=== PATIENT | male | born 1945 | race Caucasian/White ===

== ENCOUNTER → 2016-09-23 | Outpatient (CLI) | payer MEDICARE, OTHER ==
[~2016-09-23] MED LIST: ALBU1.25 IH; ALPR0.5T PO; CATHETER FLUSH 10 ML SYR IV PRN; IOHEXOL 350 MG/ML 100 ML (OMNIPAQUE 350) VIAL IV ONE; NS 100 ML (IVPB) BAG IV ONE; RT-ALBUINH IH
[2016-09-23 11:50] LABS: BLOOD UREA NITROGEN 11 MG/DL (7-18); BUN/CREATININE RATIO 13; CREATININE SERUM 0.88 MG/DL (0.60-1.30); GFR ESTIMATED > 60
--- NOTE | 2016-09-23 15:19 | Diagnostic Imaging Report ---
PROCEDURE: CT abdomen and pelvis with contrast. TECHNIQUE: Multiple contiguous axial images were obtained through the abdomen and pelvis after administration of intravenous contrast. INDICATION: Weight loss. 100 mL of Omnipaque 350 is administered intravenously. FINDINGS: There are emphysema changes seen in the lung bases and a 4 cm bulla or pneumatocele in the left lower lobe noted. Minimal atelectasis or scarring is also noted in the left lung base. The liver, the gallbladder, the pancreas and adrenal glands appear unremarkable. The kidneys have symmetric enhancement and excretion. There is no hydronephrosis. There is a 2.4 cm lobulated lesion in the left kidney with question of internal solid component or debris with Hounsfield unit of 20-25 on the arterial phase within it, higher than expected for a simple cyst. The prostate is mildly enlarged and heterogenous measuring 5.5 cm in transverse dimension. There is no bowel obstruction. Small to moderate amounts of fecal material seen in the colon. There is no fluid collection or free fluid in the abdomen or pelvis seen. The abdominal aorta is normal in caliber. No para-aortic significantly enlarged lymph node is seen. There is prominent atherosclerotic plaque noted. The osseous structures demonstrate mild depression of the superior endplate of L2 vertebral body, may relate to degenerative Schmorl's nodes or secondary to injury of indeterminate age. No destructive or sclerotic suspicious mass identified. IMPRESSION: 1. A 2.4 cm left kidney hypodense lesion with slightly higher than simple fluid density in the arterial phase. Evaluation with ultrasound is recommended to ensure that this is a simple or minimally complicated cyst with no solid components. 2. Slightly heterogenous mildly enlarged prostate gland. Correlate clinically and with PSA levels. Dictated by: Dictated on workstation # [id number]
== END ==
LOC: EDSEX 09-10 08:45 → RAD 11:11
DX: R63.4 Abnormal weight loss (principal)
CPT/HCPCS: 36415; 74177; 82565; 84520

== ENCOUNTER → 2016-11-01 | Outpatient (CLI) | payer OTHER ==
[~2016-11-01] MED LIST changes: -CATHETER FLUSH 10 ML SYR IV PRN; -IOHEXOL 350 MG/ML 100 ML (OMNIPAQUE 350) VIAL IV ONE; -NS 100 ML (IVPB) BAG IV ONE
--- NOTE | 2016-11-01 10:28 | Diagnostic Imaging Report ---
EXAMINATION: Renal ultrasound. INDICATION: Weight loss. Indeterminate renal lesion seen on CT in the left kidney. FINDINGS: Along the lateral aspect of the left kidney, there is a 2.6 x 2.6 x 2.5 cm heterogenous complex lesion. There is increased through transmission. There is equivocal color-flow noted along its margins with some probable artifactual color within the lesion. This remains indeterminate. The left kidney is 9.7 and the right kidney is also 9.7 cm in length. No hydronephrosis. The urinary bladder appears unremarkable. IMPRESSION: Indeterminate 2.5 cm heterogenous lesion in the left kidney. There is question of internal color-flow within this lesion or along its margin. This is not definitive, however, based on this exam. A renal mass protocol MRI of the abdomen is recommended to further evaluate. Dictated by: Dictated on workstation # [id number]
== END ==
LOC: RAD 08:57
DX: R93.422 Abnormal radiologic findings on diagnostic imaging of left kidney (principal)
CPT/HCPCS: 76770

== ENCOUNTER 2018-02-24 14:40 | Inpatient (IN) | payer MEDICARE, OTHER ==
[~2018-02-24] VITALS: Ht 177.8 cm; Wt 55.5 kg
[2018-02-24] VITALS (13 sets, daily range): BP systolic 97–139; BP diastolic 55–90
--- OUTSIDE RECORDS SUMMARY | 2018-02-24 14:48 | XMS REPORT ---
Patient Summary 2.1 Created on: NEEL ARAYA : 1945 Sex: Male Author Author ARELIS SHUKLA Unknown Address [address] [facility] [address] [place], [place] [address] Care Team Providers Care Computer Forensics Technician Name Role Phone Watchlist KACEY HERRERA Watchlist SHELLIE Santos MD Attending MIRANDA MAX MD ER Erd[facility]1 [facility] Functional Status No Data Found Immunization Immunization Date Status Additional Notes Code Code System pneumococcal polysaccharide PPV23 04/26/2014 Completed 33 CVX Tdap 04/27/2013 Completed 115 CVX Mental Status No Data Found Results IRON PANEL - Collect Date/Time: 01/07/2018 07:05 [facility] ID: [id number] - [id number] [address] [facility] [address], [place], [address] [facility] ID: [id number] - [id number] [address] [facility] [address], [place], [address] [facility] ID: [id number] - [id number] [address] [facility] [address], [place], [address] [facility] ID: [id number] - [id number] [address] [facility] [address], [place], [address] LOINC: 2500-7 Test Value Unit Reference Range Code Code System IRON TOTAL 66 MCG/DL L=50 H=212 2498-4 LOINC Transferrin 165 MG/DL L=175 H=375 3034-6 LOINC TIBC Calculation 206 MG/DL L=250 H=450 %Saturation Calc 32 % L=15 H=55 COMPREHENSIVE METABOLIC PANEL - Collect Date/Time: 01/07/2018 07:05 [facility] ID: [id number] - [id number] [address], [place], [place], [address] [facility] ID: [id number]..[id number] - [id number] [address], [place], [address] [facility] ID: [id number]..[id number] - [id number] [address], [place], [place], [address] [facility] ID: [id number]..840.1.608887.4.7 - [id number] [address], [place], [place], [address] [facility] ID: 2..840.1.953768.4.7 - [id number] [address], [place], [place], [address] [facility] ID: [id number]..[id number] - [id number] [address], [place], [place], [address] [facility] ID: [id number]..840.1.596785.4.7 - [id number] [address], [place], [place], [address] [facility] ID: 2..840.1.841471.4.7 - [id number] [address], [place], [place], [address] [facility] ID: [id number]..[id number] - [id number] [address], [place], [place], [address] [facility] ID: 2..840.1.341535.4.7 - [id number] [address], [place], [place], [address] [facility] ID: [id number]..840.1.095023.4.7 - [id number] [address], [place], [place], [address] [facility] ID: [id number] - [id number] [address] [facility] [place] [address] [facility] ID: [id number] - [id number] [address] [facility] [address] [place], [place], [address] [facility] ID: [id number] - [id number] [address] [facility] [place], [address] [facility] ID: [id number] - [id number] [address] [facility] [place], [address] [facility] ID: [id number] - [id number] [address] [facility] [address] [place], [address] [facility] ID: [id number] - [id number] [address] [facility] [address] [place], [address] [facility] ID: [id number] - [id number] [address] [facility] [address] [place], [address] [facility] ID: [id number] - [id number] [address] [facility] [address] [place], [address] LOINC: 02534-0 Test Value Unit Reference Range Code Code System GLUCOSE 96 MG/DL L=70 H=100 2345-7 LOINC SODIUM 136 MEQ/L L=135 H=148 2951-2 LOINC POTASSIUM 3.9 MEQ/L L=3.5 H=5.3 2823-3 LOINC CHLORIDE 100 MEQ/L L=96 H=110 2075-0 LOINC CO2 33 MEQ/L L=22 H=29 2028-9 LOINC BUN 15 MG/DL L=8 H=22 3094-0 LOINC CREATININE 0.7 MG/DL L=0.6 H=1.6 2160-0 LOINC SGOT/AST 17 IU/L L=10 H=40 1920-8 LOINC SGPT/ALT 13 IU/L L=8 H=54 1742-6 LOINC ALK PHOS 87 IU/L L=35 H=115 6768-6 LOINC TOTAL PROTEIN 6.0 G/DL L=5.5 H=8.5 2885-2 LOINC ALBUMIN 3.4 G/DL L=3.1 H=5.4 1751-7 LOINC TOTAL BILI 0.3 MG/DL L=0.0 H=1.5 1975-2 LOINC CALCIUM 9.0 MG/DL L=8.2 H=10.6 62650-1 LOINC AGE 72 yrs GFR NonAA 111 GFR AA 135 eGFR 111 mL/min/1.7 eGFR AA* >60 RETIC COUNT - Collect Date/Time: 01/07/2018 07:05 [facility] ID: [id number] - [id number] [address] [place] [address], [place], [place], [address] [facility] ID: [id number] - [id number] [address] [place] [address], [place], [place], [address] [facility] ID: [id number] - [id number] [address] [facility] [address], [place], [address] LOINC: 97358-5 Test Value Unit Reference Range Code Code System RETIC % 1.17 % L=0.50 H=1.80 RETIC # 4.42 10^4/uL L=2.60 H=9.50 IRF 6.6 % L=2.3 H=13.4 FERRITIN - Collect Date/Time: 01/07/2018 07:05 [facility] ID: [id number] - [id number] [address] [facility] [address], [place], [place], [address] LOINC: 2276-4 Test Value Unit Reference Range Code Code System FERRITIN 234 ng/mL L=32 H=322 2276-4 LOINC PHOSPHORUS - Collect Date/Time: 01/07/2018 07:05 [facility] ID: [id number] - [id number] [address], [address] LOINC: 2777-1 Test Value Unit Reference Range Code Code System PHOSPHORUS 1.6 MG/DL L=2.5 H=4.5 2777-1 LOINC MAGNESIUM - Collect Date/Time: 01/07/2018 07:05 [facility] ID: [id number] - [id number] [address], [address] LOINC: 69262-1 Test Value Unit Reference Range Code Code System MAGNESIUM 1.7 MG/DL L=1.7 H=2.8 26431-5 LOINC CBC W/ AUTO DIFF (RFLX MAN DIFF IF IND) - Collect Date/Time: 01/07/2018 07:05 [facility] ID: [id number] - [id number] [address], [address] [facility] ID: [id number] - [id number] [address], [place], [address] [facility] ID: 2.16.840.1.765533.4.7 - [id number] [address], [address] [facility] ID: [id number] - [id number] [address], [address] [facility] ID: [id number] - [id number] [address], [address] [facility] ID: [id number] - [id number] [address], [address] [facility] ID: [id number] - [id number] [address], [place], [address] [facility] ID: [id number] - [id number] [address], [place], [place], [address] [facility] ID: [id number] - [id number] [address], [place], [place], [address] [facility] ID: [id number] - [id number] [address], [place], [place], [address] [facility] ID: [id number] - [id number] [address], [place], [place], [address] [facility] ID: [id number] - [id number] [address], [place], [place], [address] [facility] ID: [id number] - [id number] [address], [place], [address] [facility] ID: [id number] - [id number] [address], [place], [address] [facility] ID: [id number] - [id number] [address], [place], [place], [address] [facility] ID: [id number] - [id number] [address], [place], [address] [facility] ID: [id number] - [id number] [address], [place], [address] [facility] ID: [id number] - [id number] [address] [facility], [place], [address] [facility] ID: [id number] - [id number] [address] [facility] [address], [place], [place], [address] [facility] ID: [id number] - [id number] [address] [facility] [address] [place], [address] [facility] ID: [id number] - [id number] [address] [facility] [address], [place], [address] [facility] ID: [id number] - [id number] [address] [facility] [address] [place], [address] [facility] ID: [id number] - [id number] [address] [facility] [address] [place], [place], [address] [facility] ID: [id number] - [id number] [address] [facility] [address] [place], [address] LOINC: 71678-1 Test Value Unit Reference Range Code Code System WBC 10.8 TH/CMM L=4.5 H=10.8 73219-0 LOINC RBC 3.78 ML/CMM L=4.70 H=6.10 789-8 LOINC HGB 11.4 G/DL L=14.0 H=18.0 718-7 LOINC HCT 36.4 % L=42.0 H=52.0 4544-3 LOINC MCV 96 FL L=81 H=99 MCH 30.2 PG L=27.0 H=33.0 MCHC 31.3 G/DL L=31.0 H=36.0 RDW SD 46 FL L=36 H=50 RDW CV 12.9 % L=0.0 H=14.8 MPV 10.9 FL L=9.3 H=12.5 PLT 109 TH/CMM L=130 H=440 777-3 LOINC NRBC# 0.00 TH/CMM L=0.00 H=0.00 NRBC% 0.0 /100WBC L=0.0 H=2.0 %NEUT 79.4 % %LYMP 11.4 % %MONO 8.7 % %EOS 0.0 % %BASO 0.1 % #NEUT 8.53 TH/CMM L=2.10 H=8.20 #LYMP 1.23 TH/CMM L=0.90 H=5.20 #MONO 0.94 TH/CMM L=0.16 H=1.00 #EOS 0.00 TH/CMM L=0.00 H=0.80 #BASO 0.01 TH/CMM L=0.00 H=0.20 MANUAL DIFF NOT IND VITAMIN B12 & FOLATE - Collect Date/Time: 01/07/2018 07:05 [facility] ID: [id number] - [id number] [address] [facility] [address], [place], [place], [address] [facility] ID: [id number] - [id number] [address] [facility] [address] [place], [address] LOINC: Test Value Unit Reference Range Code Code System VITAMIN B12 281 PG/ML L=213 H=816 2132-9 LOINC FOLATE 3.80 ng/mL 2284-8 LOINC MAGNESIUM - Collect Date/Time: 01/06/2018 06:30 [facility] ID: [id number] - [id number] [address] [facility] [address] [place], [address] LOINC: 05133-9 Test Value Unit Reference Range Code Code System MAGNESIUM 1.8 MG/DL L=1.7 H=2.8 21300-5 LOINC CBC W/ AUTO DIFF (RFLX MAN DIFF IF IND) - Collect Date/Time: 01/06/2018 06:30 [facility] ID: [id number] - [id number] [address] [facility] [address] [place], [address] [facility] ID: [id number] - [id number] [address], [place], [place], [address] [facility] ID: [id number] - [id number] [address], [place], [place], [address] [facility] ID: [id number] - [id number] [address], [place], [place], [address] [facility] ID: [id number] - [id number] [address], [place], [place], [address] [facility] ID: [id number] - [id number] [address], [place], [place], [address] [facility] ID: [id number] - [id number] [address], [place], [address] [facility] ID: [id number] - [id number] [address], [place], [address] [facility] ID: [id number] - [id number] [address], [place], [place], [address] [facility] ID: [id number] - [id number] [address], [place], [address] [facility] ID: [id number] - [id number] [address], [place], [address] [facility] ID: [id number] - [id number] [address], [place], [place], [address] [facility] ID: [id number] - [id number] [address], [place], [address] [facility] ID: [id number] - [id number] [address], [place], [address] [facility] ID: [id number] - [id number] [address], [place], [address] [facility] ID: [id number] - [id number] [address], [place], [address] [facility] ID: [id number] - [id number] [address], [place], [address] [facility] ID: [id number] - [id number] [address], [place], [address] [facility] ID: [id number] - [id number] [address], [place], [address] [facility] ID: [id number] - [id number] [address], [place], [address] [facility] ID: [id number] - [id number] [address], [place], [address] [facility] ID: [id number] - [id number] [address], [place], [address] [facility] ID: [id number] - [id number] [address], [place], [address] [facility] ID: [id number] - [id number] [address], [place], [address] LOINC: 98435-2 Test Value Unit Reference Range Code Code System WBC 8.4 TH/CMM L=4.5 H=10.8 49191-1 LOINC RBC 4.42 ML/CMM L=4.70 H=6.10 789-8 LOINC HGB 13.2 G/DL L=14.0 H=18.0 718-7 LOINC HCT 42.2 % L=42.0 H=52.0 4544-3 LOINC MCV 96 FL L=81 H=99 MCH 29.9 PG L=27.0 H=33.0 MCHC 31.3 G/DL L=31.0 H=36.0 RDW SD 45 FL L=36 H=50 RDW CV 12.6 % L=0.0 H=14.8 MPV 10.6 FL L=9.3 H=12.5 PLT 155 TH/CMM L=130 H=440 777-3 LOINC NRBC# 0.00 TH/CMM L=0.00 H=0.00 NRBC% 0.0 /100WBC L=0.0 H=2.0 %NEUT 83.8 % %LYMP 8.4 % %MONO 7.3 % %EOS 0.0 % %BASO 0.1 % #NEUT 7.00 TH/CMM L=2.10 H=8.20 #LYMP 0.70 TH/CMM L=0.90 H=5.20 #MONO 0.61 TH/CMM L=0.16 H=1.00 #EOS 0.00 TH/CMM L=0.00 H=0.80 #BASO 0.01 TH/CMM L=0.00 H=0.20 MANUAL DIFF NOT IND PHOSPHORUS - Collect Date/Time: 01/06/2018 06:30 [facility] ID: [id number] - [id number] [address], [place], [address] LOINC: 2777-1 Test Value Unit Reference Range Code Code System PHOSPHORUS 3.5 MG/DL L=2.5 H=4.5 2777-1 [facility] METABOLIC PANEL - Collect Date/Time: 01/06/2018 06:30 [facility] ID: [id number] - [id number] [address], [place], [address] [facility] ID: [id number]..[id number] - [id number] [address], [place], [address] [facility] ID: [id number]..840.1.189854.4.7 - [id number] [address], [place], [address] [facility] ID: [id number]..840.1.413813.4.7 - [id number] [address], [place], [address] [facility] ID: [id number]..840.1.676044.4.7 - [id number] [address], [place], [address] [facility] ID: 2..840.1.110418.4.7 - [id number] [address], [place], [address] [facility] ID: [id number]..840.1.849433.4.7 - [id number] [address], [place], [address] [facility] ID: [id number]..840.1.637721.4.7 - [id number] [address], [place], [address] [facility] ID: 2..840.1.854877.4.7 - [id number] [address], [place], [address] [facility] ID: [id number]..840.1.174447.4.7 - [id number] [address], [place], [address] [facility] ID: [id number]..840.1.519424.4.7 - [id number] [address] [facility] [address] [place], [address] [facility] ID: [id number] - [id number] [address] [facility] [address], [place], [place], [address] [facility] ID: [id number] - [id number] [address] [facility] [address], [place], [address] [facility] ID: [id number] - [id number] [address] [facility] [address] [place], [place], [address] [facility] ID: [id number] - [id number] [address] [facility] [address] [place], [place], [address] [facility] ID: [id number] - [id number] [address] [facility] [address], [place], [place], [address] [facility] ID: [id number] - [id number] [address] [facility] 59 [place], [place], [address] [facility] ID: [id number] - [id number] [address] [facility] [address] [place], [place], [address] [facility] ID: [id number] - [id number] [address] [facility] [address] [place], [place], [address] LOINC: 53927-9 Test Value Unit Reference Range Code Code System GLUCOSE 116 MG/DL L=70 H=100 2345-7 LOINC SODIUM 135 MEQ/L L=135 H=148 2951-2 LOINC POTASSIUM 4.6 MEQ/L L=3.5 H=5.3 2823-3 LOINC CHLORIDE 96 MEQ/L L=96 H=110 2075-0 LOINC CO2 33 MEQ/L L=22 H=29 8-9 LOINC BUN 10 MG/DL L=8 H=22 3094-0 LOINC CREATININE 0.8 MG/DL L=0.6 H=1.6 2160-0 LOINC SGOT/AST 19 IU/L L=10 H=40 1920-8 LOINC SGPT/ALT 15 IU/L L=8 H=54 1742-6 LOINC ALK PHOS 99 IU/L L=35 H=115 6768-6 LOINC TOTAL PROTEIN 6.9 G/DL L=5.5 H=8.5 2885-2 LOINC ALBUMIN 3.9 G/DL L=3.1 H=5.4 1751-7 LOINC TOTAL BILI 0.3 MG/DL L=0.0 H=1.5 1975-2 LOINC CALCIUM 9.6 MG/DL L=8.2 H=10.6 37103-9 LOINC AGE 72 yrs GFR NonAA 96 GFR AA 116 eGFR 96 mL/min/1.7 eGFR AA* >60 RESPIRATORY PANEL - Collect Date/Time: 01/05/2018 20:25 [facility] ID: [id number] - [id number] [address] [facility] [address], [place], [place], [address] [facility] ID: [id number] - [id number] [address] [facility], [place], [place], [address] [facility] ID: [id number] - [id number] [address] [facility] [address], [place], [place], [address] [facility] ID: [id number] - [id number] [address] [facility] [address], [place], [address] [facility] ID: [id number] - [id number] [address] [facility] [address], [place], [address] [facility] ID: [id number] - [id number] [address] [facility] [address], [place], [place], [address] [facility] ID: [id number]..840.1.392046.4.7 - [id number] [address], [place], [address] [facility] ID: [id number] - [id number] [address], [place], [place], [address] [facility] ID: [id number] - [id number] [address], [place], [address] [facility] ID: [id number] - [id number] [address], [place], [place], [address] [facility] ID: [id number] - [id number] [address], [place], [place], [address] [facility] ID: [id number] - [id number] [address], [place], [place], [address] [facility] ID: [id number] - [id number] [address], [place], [address] [facility] ID: [id number] - [id number] [address], [place], [place], [address] [facility] ID: [id number] - [id number] [address], [place], [place], [address] [facility] ID: [id number] - [id number] [address], [place], [place], [address] [facility] ID: [id number] - [id number] [address], [place], [place], [address] LOINC: Test Value Unit Reference Range Code Code System Adenovirus Not Detected NEG: Not Detected Coronavirus 229E Not Detected NEG: Not Detected Coronavirus HKU1 Not Detected NEG: Not Detected Coronavirus NL63 Not Detected NEG: Not Detected Coronavirus OC43 Not Detected NEG: Not Detected Human Metapneumoviru Not Detected NEG: Not Detected Human Rhinov/Enterov Not Detected NEG: Not Detected Influenza A Not Detected NEG: Not Detected Influenza B Not Detected NEG: Not Detected Parainfluenza Virus1 Not Detected NEG: Not Detected Parainfluenza Virus2 Not Detected NEG: Not Detected Parainfluenza Virus3 Not Detected NEG: Not Detected Parainfluenza Virus4 Not Detected NEG: Not Detected Resp Syncytial Virus Not Detected NEG: Not Detected Bordetella pertussis Not Detected NEG: Not Detected 18136-8 LOINC Chlamydophila pneumo Not Detected NEG: Not Detected Mycoplasma pneumonia Not Detected NEG: Not Detected ABG - Collect Date/Time: 01/05/2018 16:36 [facility] ID: [id number] - [id number] [address], [address] [facility] ID: [id number] - [id number] [address], [address] [facility] ID: [id number] - [id number] [address], [address] [facility] ID: [id number]..840.1.510673.4.7 - [id number] [address], [address] [facility] ID: [id number]..840.1.337265.4.7 - [id number] [address], [address] [facility] ID: [id number]..840.1.793260.4.7 - [id number] [address] [address], [place], [place], [address] [facility] ID: 2..840.1.332624.4.7 - [id number] [address] [facility] [place], [address] [facility] ID: [id number] - [id number] [address] [facility] [address] [place], [place], [address] [facility] ID: [id number] - [id number] [address] [facility] [address] [place], [place], [id number] LOINC: 83643-3 Test Value Unit Reference Range Code Code System SITE L BRACH FIO2 RA PH 7.33 L=7.35 H=7.45 PCO2 63 mmHG L=35 H=45 PO2 54 mmHG L=80 H=100 BE 4.6 mmol/L L=-2.5 H=2.5 HCO3 32 mmol/L L=22 H=28 TCO2 29 mmol/L L=18 H=31 O2SAT 87 % L=80 H=100 LACTIC ACID - Collect Date/Time: 01/05/2018 11:35 [facility] ID: [id number] - [id number] [address] [facility] [address] [place], [place], [address] LOINC: Test Value Unit Reference Range Code Code System LACTIC ACID 1.3 mmol/L L=0.5 H=1.6 2524-7 LOINC CBC W/ AUTO DIFF (RFLX MAN DIFF IF IND) - Collect Date/Time: 01/05/2018 11:35 [facility] ID: [id number] - [id number] [address] [facility] [address] [place], [address] [facility] ID: [id number] - [id number] [address] [facility] [place], [address] [facility] ID: [id number] - [id number] [address] [facility] [address] [place], [place], [address] [facility] ID: [id number] - [id number] [address], [place], [address] [facility] ID: [id number] - [id number] [address], [place], [place], [address] [facility] ID: [id number] - [id number] [address], [place], [place], [address] [facility] ID: [id number] - [id number] [address], [place], [place], [address] [facility] ID: [id number] - [id number] [address], [place], [place], [address] [facility] ID: [id number] - [id number] [address], [place], [address] [facility] ID: [id number] - [id number] [address], [place], [place], [address] [facility] ID: [id number] - [id number] [address], [place], [place], [address] [facility] ID: [id number] - [id number] [address], [place], [address] [facility] ID: [id number] - [id number] [address], [place], [address] [facility] ID: [id number] - [id number] [address], [place], [place], [address] [facility] ID: [id number] - [id number] [address], [address] [facility] ID: [id number] - [id number] [address], [address] [facility] ID: [id number] - [id number] [address] [facility] [address], [address] [facility] ID: [id number] - [id number] [address] [facility] [address] [place], [place], [address] [facility] ID: [id number] - [id number] [address] [facility] [address] [place], [place], [address] [facility] ID: [id number] - [id number] [address] [facility] [address], [address] [facility] ID: [id number] - [id number] [address] [facility] [address] [place], [place], [address] [facility] ID: [id number] - [id number] [address] [facility] [address] [place], [place], [address] [facility] ID: [id number] - [id number] [address] [facility] [address] [place], [place], [address] [facility] ID: [id number] - [id number] [address] [facility] [address], [address] LOINC: Test Value Unit Reference Range Code Code System WBC 6.1 TH/CMM L=4.5 H=10.8 43712-2 LOINC RBC 4.75 ML/CMM L=4.70 H=6.10 789-8 LOINC HGB 14.4 G/DL L=14.0 H=18.0 718-7 LOINC HCT 45.3 % L=42.0 H=52.0 4544-3 LOINC MCV 95 FL L=81 H=99 MCH 30.3 PG L=27.0 H=33.0 MCHC 31.8 G/DL L=31.0 H=36.0 RDW SD 45 FL L=36 H=50 RDW CV 12.8 % L=0.0 H=14.8 MPV 10.5 FL L=9.3 H=12.5 PLT 146 TH/CMM L=130 H=440 777-3 LOINC NRBC# 0.00 TH/CMM L=0.00 H=0.00 NRBC% 0.0 /100WBC L=0.0 H=2.0 %NEUT 62.6 % %LYMP 22.7 % %MONO 10.9 % %EOS 2.8 % %BASO 0.8 % #NEUT 3.81 TH/CMM L=2.10 H=8.20 #LYMP 1.38 TH/CMM L=0.90 H=5.20 #MONO 0.66 TH/CMM L=0.16 H=1.00 #EOS 0.17 TH/CMM L=0.00 H=0.80 #BASO 0.05 TH/CMM L=0.00 H=0.20 MANUAL DIFF NOT IND COMPREHENSIVE METABOLIC PANEL - Collect Date/Time: 01/05/2018 11:35 [facility] ID: [id number] - [id number] [address] [facility] [address], [place], [place], [address] [facility] ID: [id number] - [id number] [address] [facility] [address], [place], [place], [address] [facility] ID: [id number] - [id number] [address] [facility] [address], [place], [place], [address] [facility] ID: [id number] - [id number] [address] [facility] [address], [place], [place], [address] [facility] ID: [id number] - [id number] [address], [place], [address] [facility] ID: [id number] - [id number] [address], [place], [place], [address] [facility] ID: [id number] - [id number] [address], [place], [place], [address] [facility] ID: [id number] - [id number] [address], [place], [place], [address] [facility] ID: [id number] - [id number] [address], [place], [place], [address] [facility] ID: [id number] - [id number] [address], [place], [place], [address] [facility] ID: [id number] - [id number] [address], [place], [place], [address] [facility] ID: [id number] - [id number] [address], [place], [address] [facility] ID: [id number] - [id number] [address], [place], [address] [facility] ID: .[id number] - [id number] [address], [place], [address] [facility] ID: [id number] - [id number] [address], [place], [id number] [facility] ID: [id number] [address] [facility] [address] [place], [place], [id number] [facility] ID: [id number] [address] [facility] [address] [address] [place], [id number] [facility] ID: [id number] [address] [facility] [address] [place], [id number] [facility] ID: [id number] [address] [facility] [address] [place], [place], [id number] LOINC: Test Value Unit Reference Range Code Code System GLUCOSE 77 MG/DL L=70 H=100 2345-7 LOINC SODIUM 137 MEQ/L L=135 H=148 2951-2 LOINC POTASSIUM 4.5 MEQ/L L=3.5 H=5.3 2823-3 LOINC CHLORIDE 97 MEQ/L L=96 H=110 2075-0 LOINC CO2 33 MEQ/L L=22 H=29 2028-9 LOINC BUN 11 MG/DL L=8 H=22 3094-0 LOINC CREATININE 0.8 MG/DL L=0.6 H=1.6 2160-0 LOINC SGOT/AST 25 IU/L L=10 H=40 1920-8 LOINC SGPT/ALT 17 IU/L L=8 H=54 1742-6 LOINC ALK PHOS 112 IU/L L=35 H=115 6768-6 LOINC TOTAL PROTEIN 7.6 G/DL L=5.5 H=8.5 2885-2 LOINC ALBUMIN 4.2 G/DL L=3.1 H=5.4 1751-7 LOINC TOTAL BILI 0.4 MG/DL L=0.0 H=1.5 1975-2 LOINC CALCIUM 9.8 MG/DL L=8.2 H=10.6 51944-5 LOINC AGE 72 yrs GFR NonAA 96 GFR AA 116 eGFR 96 mL/min/1.7 eGFR AA* >60 CX CHEST 1 VIEW - Completed: 01/06/2018 06:36 LOINC: EXAMINATION:CX CHEST 1 VIEWREASON FOR EXAM:Chronic obstructive pulmonary disease COMPARISON:01/05/2018FINDINGS:The cardiac silhouette is normal in size.Calcified aortic atherosclerotic plaque.The lungs are hyperinflated with chronic appearing interstitial changes.Findings suspicious for a 1.5 cm medial right upper lobe pulmonary nodule, a follow-up nonurgent CT of the chest is suggested for additional evaluation.No consolidation or pleural effusion.Probable right hemithorax skinfold. Chronic bilateral rib fracture deformities. Mildly displaced left lateral clavicular fracture. IMPRESSION: Stable cardiopulmonary findings.Additional findings as above. Reviewed and Electronically Signed by: Angelique Spain Date/Time: 01/06/2018 8:15 AMJob ID#: [id number] CX CHEST 1 VIEW - Completed: 01/05/2018 12:18 LOINC: EXAMINATION:CX CHEST 1 VIEWREASON FOR EXAM:Shortness of Breath COMPARISON: None.FINDINGS:The cardiac silhouette is normal in size.Calcified aortic atherosclerotic plaque.Chronic appearing interstitial changes of the lungs.Findings suspicious for a medial right upper lobe pulmonary nodule, the differential includes summation artifact.No consolidation, pleural effusion, or sizable pneumothorax.IMPRESSION:Chronic appearing findings.Findings suspicious for a medial right upper lobe pulmonary nodule, a follow-up nonurgent outpatient contrast enhanced CT of the chest is suggested.The information above was relayed directly by me by telephone to Johanny in ER on 01/05/2018 at 13:11. Reviewed and Electronically Signed by: Angelique Spain Date/Time: 2017 1:13 PMJob ID#: [id number] Social History Type Status Start Date End Date Code Code System Smoking History Current every day smoker 273052448 SNOMED-CT Vital Signs Vital Sign Value Unit Date/Time Recent/Initial? Code Code System Body Mass Index 17.28 kg/m2 01/07/2018 02:46 Most Recent 18232-7 LOINC Body Mass Index 16.80 kg/m2 01/05/2018 15:58 Inital 84695-4 LOINC Systolic Blood Pressure 106 mm[Hg] 01/07/2018 11:42 Most Recent 8480-6 [facility] Diastolic Blood Pressure 65 mm[Hg] 01/07/2018 11:42 Most Recent 8462-4 [facility] Systolic Blood Pressure 102 mm[Hg] 01/05/2018 15:58 [facility] 8480-6 [facility] Diastolic Blood Pressure 54 mm[Hg] 01/05/2018 15:58 [facility] 8462-4 [facility] Body Surface Area 1.64 m2 01/07/2018 02:46 Most Recent 3140-1 [facility] Body Surface Area 1.62 m2 01/05/2018 15:58 [facility] [address] [facility] Height 177.8000 cm 01/07/2018 02:46 Most Recent 83022 [facility] Height 177.8000 cm 01/05/2018 15:58 [facility] [address] [facility] O2 Saturation 98 % 01/07/2018 11:42 Most Recent 97096-9 [facility] O2 Saturation 97 % 01/05/2018 15:58 Inital 58243-9 [facility] Pulse 63.0 /min 01/07/2018 11:42 Most Recent [address] Pulse 75.0 /min 01/05/2018 15:58 [facility] [address] Respiration 20 /min 01/07/2018 11:42 Most Recent [address] Respiration 19 /min 01/05/2018 15:58 [facility] [address] Temperature 36.7 Dana 01/07/2018 11:42 Most Recent [address] Temperature 36.7 Dana 01/05/2018 15:58 [facility] [address] [facility] Weight 54.6125 kg 01/07/2018 02:46 Most Recent 51257-7 [facility] Weight 53.1157 kg 01/05/2018 15:58 [facility] 76689-0 [facility] Medications Medication Start Date End Date Route Frequency Dose Code Code System DUONEB [ATROVENT/ALBUTEROL] 0.5/3 MG 01/05/2018 Unknown INHALATION Q4HR (RT) 1 unit(s) 0295042 RxNorm PredniSONE 20 MG TABLET 01/05/2018 Unknown BY MOUTH DAILY 60 MG [id number] RxNorm DOXYCYCLINE [VIBRAMYCIN] CAPSULE:100MG 01/05/2018 01/12/2018 BY MOUTH BID 100 MG [id number] RxNorm NICOTINE (NICODERM) PATCH: 21MG/24HR 01/05/2018 Unknown TOPICAL DAILY 21 MG [id number] RxNorm POLYETHYLENE [MIRALAX] POWDER: 17 GM 01/05/2018 Unknown BY MOUTH PRN Q12 HRS 17 GM [id number] RxNorm ONDANSETRON ODT [ZOFRAN ODT] TABLET: 4MG 01/05/2018 Unknown BY MOUTH PRN 4 MG [id number] RxNorm ACETAMINOPHEN [TYLENOL] TABS 325MG 01/05/2018 Unknown BY MOUTH PRN Q 4 HRS 650 MG [id number] RxNorm TAMSULOSIN [FLOMAX] CAP: 0.4MG 01/05/2018 Unknown BY MOUTH HS 0.4 MG [id number] RxNorm BUDESONIDE [PULMICORT] RESP 0.5MG/2ML 01/05/2018 Unknown INHALATION Q 12 HRS (RT ONLY) 1 DOSE 550495 RxNorm NS 1000 ML IV [PREDEFINED] (7983) 01/05/2018 Unknown INTRAVENOUS CONT IV 50 ml/hr [id number] RxNorm ~~~NACL 0.9% (7983) 1000ML IV BAG 1000 ML RxNorm ALPRAZOLAM [XANAX] TABLET : 1 MG 01/05/2018 Unknown BY MOUTH PRN Q 8 HRS 1 MG [id number] RxNorm Assessment You had the following problems: COPD ACUTE RESPIRATORY ACIDOSIS Hospital Discharge Instructions Should you have any questions prior to discharge, please contact a member of your healthcare team. If you have left the hospital and have any questions, please contact your primary care physician. Reason For Referral No Data Found Procedures Procedure Name Date Status Code Code System Extraction of teeth completed 41396476 SNOMED CT Implants No Data Found Problems Problem Start Date Resolved Date Status Code Code System COPD active 58574613 SNOMED-CT ACUTE RESPIRATORY ACIDOSIS active 58712813 SNOMED-CT DEPRESSION 01/05/2018 resolved 14844222 SNOMED-CT ANXIETY 01/05/2018 resolved 50457276 SNOMED-CT COPD 01/05/2018 resolved 66158969 SNOMED- CT SKIN CANCER 01/05/2018 resolved 331364806 SNOMED-CT MRSA INFECTION 01/05/2018 resolved 100377516 SNOMED-CT CHRONIC PTSD 01/05/2018 resolved 552177141 SNOMED-CT CYST OF KIDNEY 01/05/2018 resolved 490036501 SNOMED-CT Allergies Allergy Substance Reaction Severity Start Date Concern Status Code Code System LIDOCAINE Active 6387 RxNorm Plan of Treatment CBC W/ AUTO DIFF (RFLX MAN DIFF IF IND) 01/08/2018 LOINC: 18104- 6 COMPREHENSIVE METABOLIC PANEL 01/08/2018 LOINC: 81803-9 MAGNESIUM 01/08/2018 LOINC: 98334-1 OCCULT BLOOD iFOBT 01/06/2018 LOINC: 2335-8 PHOSPHORUS 01/08/2018 LOINC: 2777-1 Encounters No Data Found Goals No Data Found Health Concerns Section No Data Found
--- OUTSIDE RECORDS SUMMARY | 2018-02-24 14:48 | XMS REPORT ---
Author Author MATT LEWIS [employer] Address Unknown Phone Unavailable Care Team Providers Care Web Art Director Name Role Phone MATT LEWIS CP Unavailable Allergies No Known Allergies Problems Problem Type Condition Code Onset Dates Condition Status Assessment Weight loss, unintentional R63.4 Active Problem Dyslipidemia E78.5 Active Problem Marijuana use F12.10 Active Problem Tobacco use disorder Z72.0 Active Problem Chronic obstructive pulmonary disease, unspecified COPD type J44.9 Active Problem Episodic mood disorder F39 Active Problem Primary osteoarthritis of left knee M17.12 Active Problem Primary osteoarthritis of right knee M17.11 Active Problem Generalized osteoarthritis M15.9 Active Problem Arthritis of right acromioclavicular joint M19.90 Active Medications No Known Medications Results No Known Results Summary Purpose [employer] Submission
--- OUTSIDE RECORDS SUMMARY | 2018-02-24 14:49 | XMS REPORT | Continuity of Care Document ---
Author Author [facility] Organization [facility] Address Unknown Phone Unavailable Allergies Active Description Code Type Severity Reaction Onset Reported/Identified Relationship to Patient Clinical Status Yes LIDOCAINE 20388082 DRUG N/A N/A Yes No Known Environmental Allergies 31549209 N/A N/A Yes No Known Food Allergies 63861112 N/A N/A Yes lidocaine [id number] Drug Allergy Severe N/A 04/16/2016 Yes procaine [id number] Drug Allergy Severe N/A 04/16/2016 Medications There is no data. Problems Date Dx Coded Attending Type Code Diagnosis Diagnosed By 01/22/2008 477.9 Allergic Rhinitis 01/22/2008 780.52 Insomnia 01/22/2008 V58.69 MEDICATION HIGH RISK 01/22/2008 NIKOLE SALMON DO 477.9 Allergic Rhinitis 01/22/2008 NIKOLE SALMON DO 780.52 Insomnia 01/22/2008 NIKOLE SALMON DO V58.69 MEDICATION HIGH RISK 01/22/2008 477.9 Allergic Rhinitis 01/22/2008 780.52 Insomnia 01/22/2008 V58.69 MEDICATION HIGH RISK 01/22/2008 477.9 Allergic Rhinitis 01/22/2008 780.52 Insomnia 01/22/2008 V58.69 MEDICATION HIGH RISK 07/14/2008 300.00 anxiety 07/14/2008 NIKOLE SALMON DO 300.00 anxiety 07/14/2008 300.00 anxiety 07/14/2008 300.00 anxiety 03/30/2009 307.40 Insomnia 03/30/2009 780.79 Malaise And Fatigue 03/30/2009 786.05 Shortness Of Breath 03/30/2009 786.2 Cough 03/30/2009 NIKOLE SALMON DO 307.40 Insomnia 03/30/2009 NIKOLE SALMON DO 780.79 Malaise And Fatigue 03/30/2009 NIKOLE SALMON DO 786.05 Shortness Of Breath 03/30/2009 NIKOLE SALMON DO 786.2 Cough 03/30/2009 307.40 Insomnia 03/30/2009 780.79 Malaise And Fatigue 03/30/2009 786.05 Shortness Of Breath 03/30/2009 786.2 Cough 03/30/2009 307.40 Insomnia 03/30/2009 780.79 Malaise And Fatigue 03/30/2009 786.05 Shortness Of Breath 03/30/2009 786.2 Cough 03/02/2010 465.9 UPPER RESPIRATORY INFECTION 03/02/2010 466.0 Bronchitis, Acute 03/02/2010 786.07 Wheezing 03/02/2010 NIKOLE SALMON DO 465.9 UPPER RESPIRATORY INFECTION 03/02/2010 NIKOLE SALMON DO 466.0 Bronchitis, Acute 03/02/2010 NIKOLE SALMON DO 786.07 Wheezing 03/02/2010 465.9 UPPER RESPIRATORY INFECTION 03/02/2010 466.0 Bronchitis, Acute 03/02/2010 786.07 Wheezing 03/02/2010 465.9 UPPER RESPIRATORY INFECTION 03/02/2010 466.0 Bronchitis, Acute 03/02/2010 786.07 Wheezing 03/30/2010 790.4 Nonspecific Elevation Of Levels Of Transaminase Or Lactic Acid Dehydrogenase (ldh) 03/30/2010 NIKOLE SALMON DO 790.4 Nonspecific Elevation Of Levels Of Transaminase Or Lactic Acid Dehydrogenase ( ldh) 03/30/2010 790.4 Nonspecific Elevation Of Levels Of Transaminase Or Lactic Acid Dehydrogenase (ldh) 03/30/2010 790.4 Nonspecific Elevation Of Levels Of Transaminase Or Lactic Acid Dehydrogenase (ldh) 06/15/2010 709.9 Skin Lesions 06/15/2010 NIKOLE SALMON DO 709.9 Skin Lesions 06/15/2010 709.9 Skin Lesions 06/15/2010 709.9 Skin Lesions 08/24/2010 333.1 Tremor Essential 08/24/2010 NIKOLE SALMON DO 333.1 Tremor Essential 08/24/2010 333.1 Tremor Essential 08/24/2010 333.1 Tremor Essential 11/23/2010 V68.1 ISSUE OF REPEAT PRESCRIPTIONS 11/23/2010 NIKOLE SALMON DO V68.1 ISSUE OF REPEAT PRESCRIPTIONS 11/23/2010 V68.1 ISSUE OF REPEAT PRESCRIPTIONS 11/23/2010 V68.1 ISSUE OF REPEAT PRESCRIPTIONS 01/17/2011 931 Foreign Body In Ear 01/17/2011 NIKOLE SALMON DO 931 Foreign Body In Ear 01/17/2011 931 Foreign Body In Ear 01/17/2011 931 Foreign Body In Ear 02/05/2011 780.50 SLEEP DISTURBANCE, UNSPECIFIED 02/05/2011 881.00 OPEN WOUND OF FOREARM WITHOUT COMPLICATION 02/05/2011 NIKOLE SALMON DO 780.50 SLEEP DISTURBANCE, UNSPECIFIED 02/05/2011 NIKOLE SALMON DO 881.00 OPEN WOUND OF FOREARM WITHOUT COMPLICATION 02/05/2011 780.50 SLEEP DISTURBANCE, UNSPECIFIED 02/05/2011 881.00 OPEN WOUND OF FOREARM WITHOUT COMPLICATION 02/05/2011 780.50 SLEEP DISTURBANCE, UNSPECIFIED 02/05/2011 881.00 OPEN WOUND OF FOREARM WITHOUT COMPLICATION 02/08/2011 041.12 METHICILLIN RESISTANT STAPHYLOCOCCUS INFECTION IN CONDITIONS CLASSIFIED ELSEWHERE AND OF UNSPECIFIED SITE STAPHYLOCOCCUS AUREUS 02/08/2011 NIKOLE SALMON DO 041.12 METHICILLIN RESISTANT STAPHYLOCOCCUS INFECTION IN CONDITIONS CLASSIFIED ELSEWHERE AND OF UNSPECIFIED SITE STAPHYLOCOCCUS AUREUS 02/08/2011 041.12 METHICILLIN RESISTANT STAPHYLOCOCCUS INFECTION IN CONDITIONS CLASSIFIED ELSEWHERE AND OF UNSPECIFIED SITE STAPHYLOCOCCUS AUREUS 02/08/2011 041.12 METHICILLIN RESISTANT STAPHYLOCOCCUS INFECTION IN CONDITIONS CLASSIFIED ELSEWHERE AND OF UNSPECIFIED SITE STAPHYLOCOCCUS AUREUS 08/13/2011 296.90 MOOD DISORDER 08/13/2011 780.79 MALAISE AND FATIGUE 08/13/2011 783.0 ANOREXIA 08/13/2011 NIKOLE SALMON DO 296.90 MOOD DISORDER 08/13/2011 NIKOLE SALMON DO 780.79 MALAISE AND FATIGUE 08/13/2011 NIKOLE SALMON DO 783.0 ANOREXIA 08/13/2011 296.90 MOOD DISORDER 08/13/2011 780.79 MALAISE AND FATIGUE 08/13/2011 783.0 ANOREXIA 08/13/2011 296.90 MOOD DISORDER 08/13/2011 780.79 MALAISE AND FATIGUE 08/13/2011 783.0 ANOREXIA 08/03/2012 NIKOLE SALMON DO 307.47 NIGHTMARE DISORDER 08/03/2012 NIKOLE SALMON DO 466.0 ACUTE BRONCHITIS 08/03/2012 NIKOLE SALMON DO 496 CHRONIC OBSTRUCTIVE PULMONARY DISEASE 08/03/2012 NIKOLE SALMON DO 715.00 OSTEOARTHRITIS GENERALIZED 08/03/2012 NIKOLE SALMON DO 719.46 joint pain in the left knee 08/03/2012 307.47 NIGHTMARE DISORDER 08/03/2012 466.0 ACUTE BRONCHITIS 08/03/2012 496 CHRONIC OBSTRUCTIVE PULMONARY DISEASE 08/03/2012 715.00 OSTEOARTHRITIS GENERALIZED 08/03/2012 719.46 joint pain in the left knee 08/03/2012 307.47 NIGHTMARE DISORDER 08/03/2012 466.0 ACUTE BRONCHITIS 08/03/2012 496 CHRONIC OBSTRUCTIVE PULMONARY DISEASE 08/03/2012 715.00 OSTEOARTHRITIS GENERALIZED 08/03/2012 719.46 joint pain in the left knee 10/20/2012 786.09 DYSPNEA 10/20/2012 922.1 CONTUSION OF CHEST WALL 10/20/2012 786.09 DYSPNEA 10/20/2012 922.1 CONTUSION OF CHEST WALL 11/27/2012 305.1 TOBACCO ABUSE 12/31/2012 V65.42 COUNSELING - SMOKING CESSATION 09/08/2013 MARJAN SANDOVAL, LIZANDRO Santos Ot 401.9 HYPERTENSION NOS 04/16/2016 PAM BARAHONA MD Ot R63.4 ABNORMAL WEIGHT LOSS 04/16/2016 PAM BARAHONA MD Ot Z01.818 ENCOUNTER FOR OTHER PREPROCEDURAL EXAMIN 04/16/2016 PAM BARAHONA MD Ot Z12.11 ENCOUNTER FOR SCREENING FOR MALIGNANT NE 04/16/2016 PAM BARAHONA MD Ot R63.4 ABNORMAL WEIGHT LOSS 04/16/2016 PAM BARAHONA MD Ot Z01.818 ENCOUNTER FOR OTHER PREPROCEDURAL EXAMIN 04/16/2016 PAM BARAHONA MD Ot Z12.11 ENCOUNTER FOR SCREENING FOR MALIGNANT NE 04/17/2016 PAM BARAHONA MD Ot K64.1 SECOND DEGREE HEMORRHOIDS 04/17/2016 PAM BARAHONA MD Ot Z12.11 ENCOUNTER FOR SCREENING FOR MALIGNANT NE 04/18/2016 PAM BARAHONA MD Ot K64.1 SECOND DEGREE HEMORRHOIDS 04/18/2016 PAM BARAHONA MD Ot Z12.11 ENCOUNTER FOR SCREENING FOR MALIGNANT NE 04/23/2016 PAM BARAHONA MD Ot K64.1 SECOND DEGREE HEMORRHOIDS 04/23/2016 PAM BARAHONA MD Ot Z12.11 ENCOUNTER FOR SCREENING FOR MALIGNANT NE 04/30/2016 PAM BARAHONA MD Ot K64.1 SECOND DEGREE HEMORRHOIDS 04/30/2016 PAM BARAHONA MD Ot Z12.11 ENCOUNTER FOR SCREENING FOR MALIGNANT NE 11/04/2016 CARLOS ENRIQUE PORTER DO Ot R93.422 ABNORMAL RADIOLOGIC FINDINGS ON DX IMAGI 11/05/2016 CARLOS ENRIQUE PORTER DO Ot R93.422 ABNORMAL RADIOLOGIC FINDINGS ON DX IMAGI 11/05/2016 CARLOS ENRIQUE PORTER DO Ot R93.422 ABNORMAL RADIOLOGIC FINDINGS ON DX IMAGI 11/05/2016 CARLOS ENRIQUE PORTER DO Ot R93.422 ABNORMAL RADIOLOGIC FINDINGS ON DX IMAGI Procedures Code [place] [address] XRAY CHEST 2 VIEW 10/20/2012 76769 PULMONARY FUNCTION TEST (IN- HOUSE) 10/20/2012 18374 OXIMETRY 10/20/2012 Results Test Result Range [id number] - 09/23/16 11:29 Serum or plasma urea nitrogen measurement (mass/volume) 11 mg/dL 7-18 Serum or plasma creatinine measurement (mass/volume) 0.88 mg/dL 0.60-1.30 Serum or plasma urea nitrogen/creatinine mass ratio 13 NRG Serum or plasma creatinine measurement with calculation of estimated glomerular filtration rate > NRG Encounters ACCT No. Visit Date/Time Discharge Status Pt. Type Provider Facility Loc./Unit Complaint [id number] 02/09/2018 13:06:02 02/09/2018 23:59:59 CLS Outpatient Jae Nair [id number] 01/21/2018 16:24:11 01/21/2018 23:59:59 CLS Outpatient Contreras Monge [id number] 01/06/2018 08:10:45 Document Registration [id number] 01/05/2018 16:49:36 Document Registration [id number] 11/01/2016 08:57:00 11/01/2016 23:59:59 CLS Outpatient CARLOS ENRIQUE PORTER DO [facility] RAD CYST OF KIDNEY [id number] 09/23/2016 11:11:00 09/23/2016 23:59:59 CLS Outpatient CARLOS ENRIQUE PORTER DO [facility] RAD R63.4 WEIGHT LOSS [id number] 04/17/2016 11:36:00 04/17/2016 13:45:00 DIS Outpatient PAM BARAHONA MD [facility] SCREENING; WEIGHT LOSS [id number] 04/16/2016 08:30:00 04/16/2016 08:40:00 DIS Outpatient BROOKLYN SANDOVAL, PAM [facility] PREOP SCREENING; WEIGHT LOSS [id number] 09/08/2013 16:59:00 09/08/2013 17:15:00 DIS Emergency MARJAN SANDOVAL, LIZANDRO Santos [facility] ER ELEVATED BP [id number] 08/03/2012 13:43:00 08/03/2012 23:59:59 CLS Outpatient NIKOLE SALMON DO [id number] 08/13/2011 09:27:00 08/13/2011 23:59:59 CLS Outpatient [id number] 12/31/2012 08:16:00 Document Registration [id number] 10/20/2012 15:04:00 Document Registration
[2018-02-24] MEDS ORDERED: CATHETER FLUSH 10 ML SYR IV PRN (15:15)
[2018-02-24] MEDS ORDERED: RT-ALBUTEROL/IPRATROPIUM 3 ML (DUONEB) VIAL IH PRN (15:15)
[2018-02-24] MEDS ORDERED: IOHEXOL 350 MG/ML 150 ML (OMNIPAQUE 350) VIAL IV ONE (15:30)
[2018-02-24 15:49] LABS: BASOPHILS # (AUTO) 0.1 10^3/uL (0.0-0.1); BASOPHILS % (AUTO) 1 % (0-10); EOSINOPHILS # (AUTO) 0.1 10^3/uL (0.0-0.3); EOSINOPHILS % (AUTO) 2 % (0-10); HEMATOCRIT 43 % (40-54); HEMOGLOBIN 13.6 G/DL (13.3-17.7); LYMPHOCYTES # (AUTO) 1.2 X 10^3 (1.0-4.0); LYMPHOCYTES % (AUTO) 15 % (12-44); MEAN CORPUSCULAR HEMOGLOBIN 30 PG (25-34); MEAN CORPUSCULAR HGB CONC 32 G/DL (32-36); MEAN CORPUSCULAR VOLUME 96 FL (80-99); MEAN PLATELET VOLUME 10.2 FL (7.4-10.4); MONOCYTES # (AUTO) 0.9 X 10^3 (0.0-1.0); MONOCYTES % (AUTO) 11 % (0-12); NEUTROPHILS # (AUTO) 5.9 X 10^3 (1.8-7.8); NEUTROPHILS % (AUTO) 72 % (42-75); PLATELET COUNT 163 10^3/uL (130-400); RED BLOOD COUNT 4.48 10^6/uL (4.35-5.85); RED CELL DISTRIBUTION WIDTH 14.3 % (10.0-14.5); WHITE BLOOD COUNT 8.2 10^3/uL (4.3-11.0)
[2018-02-24] MEDS ORDERED: ENOXAPARIN 40 MG/0.4 ML (LOVENOX) SYR SC SCH (16:00)
[2018-02-24 16:08] LABS: ALANINE AMINOTRANSFERASE 11 U/L (0-55); ALBUMIN 3.7 GM/DL (3.2-4.5); ALKALINE PHOSPHATASE 114 U/L (40-136); BILIRUBIN,TOTAL 0.3 MG/DL (0.1-1.0); BUN/CREATININE RATIO 23; CALCIUM 9.3 MG/DL (8.5-10.1); CARBON DIOXIDE 34 MMOL/L (21-32); CHLORIDE 98 MMOL/L (98-107); CREATININE SERUM 0.74 MG/DL (0.60-1.30); GFR ESTIMATED > 60; GLUCOSE 94 MG/DL (70-105); MAGNESIUM 1.7 MG/DL (1.8-2.4); PHOSPHORUS 2.6 MG/DL (2.3-4.7); POTASSIUM 4.1 MMOL/L (3.6-5.0); SODIUM 140 MMOL/L (135-145); TOTAL PROTEIN 6.8 GM/DL (6.4-8.2)
[2018-02-24] MEDS ORDERED: NAPR220T66 PO (16:22)
[2018-02-24] MEDS ORDERED: ALPR1TAB7 PO (16:22)
[2018-02-24] MEDS ORDERED: INHALER (16:24)
[2018-02-24] MEDS: PANTOPRAZOLE 40 MG (PROTONIX) VIAL IV SCH (16:47)
[2018-02-24] MEDS: LACTATED RINGERS 1,000 ML IV SCH ×2 (16:47→23:06)
--- NOTE | 2018-02-24 16:51 | Diagnostic Imaging Report ---
PROCEDURE: CT head with and without contrast. TECHNIQUE: Multiple contiguous axial images were obtained through the brain before and after the administration of intravenous contrast. INDICATION: Fall. COMPARISON: None. FINDINGS: No CT evidence of territorial infarction. No intracranial hemorrhage, mass effect, hydrocephalus, or extra-axial fluid collections. Moderate generalized cerebral and cerebellar parenchymal volume loss. No abnormal intracranial enhancement. Osseous structures are intact. The visualized paranasal sinuses and mastoids are unremarkable. IMPRESSION: No acute intracranial CT findings. No abnormal intracranial enhancement. Dictated by: Dictated on workstation # [id number]
--- NOTE | 2018-02-24 17:05 | Diagnostic Imaging Report ---
PROCEDURE: CT angiography of the chest with contrast. TECHNIQUE: Multiple contiguous axial images were obtained through the chest after uneventful bolus administration of intravenous contrast. 2D reconstructed CTA MIP acquisitions were also performed. INDICATION: Fall one week ago. Lung mass. COMPARISON: None. FINDINGS: No pulmonary artery filling defects. No thoracic aortic aneurysm or dissection. Moderate atherosclerotic calcifications including coronary and aortic. Advanced emphysematous changes in the lungs. There is a spiculated mass in the posterior right upper lobe measuring up to 2.9 cm. Prominent mediastinal lymph nodes remain subcentimeter in short axis dimension. No hilar or axillary lymphadenopathy. No endobronchial lesions. No pleural effusion or pneumothorax. The visualized upper abdominal contents, including the adrenal glands are unremarkable. No suspicious osteoblastic or lytic lesions. There is acute appearing posterior left 9th through 11th rib fractures. IMPRESSION: 1. No pulmonary emboli. No thoracic aortic aneurysm or dissection. 2. Mass in the posterior right upper lobe measuring up to 2.9 cm strongly suspicious for a primary lung malignancy. 3. Acute appearing mildly angulated posterior left 9th through 11th rib fractures. Dictated by: Dictated on workstation # [id number]
[2018-02-24] MEDS ORDERED: FLU QUADRIvalent (5+ YOA) 2018-2019 (AFLURIA) 0.5 ML IM ONE (17:30)
[2018-02-24 20:36] LABS: BILIRUBIN,URINE NEGATIVE (NEGATIVE); CLARITY,URINE CLEAR; COLOR,URINE YELLOW; GLUCOSE, URINE (UA) NEGATIVE (NEGATIVE); KETONES,URINE NEGATIVE (NEGATIVE); LEUKOCYTE ESTERASE ,URINE NEGATIVE (NEGATIVE); NITRITE,URINE NEGATIVE (NEGATIVE); PH,URINE 6.5 (5-9); PROTEIN,URINE 2+ (NEGATIVE); UROBILINOGEN,URINE NORMAL (NORMAL)
[2018-02-24 20:46] LABS: SQUAMOUS EPITHELIAL CELL,UR RARE /HPF
[2018-02-25] VITALS (17 sets, daily range): BP systolic 105–139; BP diastolic 51–69
[2018-02-25] MEDS: RT-ALBUTEROL/IPRATROPIUM 3 ML (DUONEB) VIAL IH SCH ×6 (03:12→22:37)
[2018-02-25 03:41] LABS: BASOPHILS # (AUTO) 0.1 10^3/uL (0.0-0.1); BASOPHILS % (AUTO) 1 % (0-10); EOSINOPHILS # (AUTO) 0.2 10^3/uL (0.0-0.3); EOSINOPHILS % (AUTO) 3 % (0-10); HEMATOCRIT 39 % (40-54); HEMOGLOBIN 12.4 G/DL (13.3-17.7); LYMPHOCYTES # (AUTO) 1.6 X 10^3 (1.0-4.0); LYMPHOCYTES % (AUTO) 21 % (12-44); MEAN CORPUSCULAR HEMOGLOBIN 30 PG (25-34); MEAN CORPUSCULAR HGB CONC 32 G/DL (32-36); MEAN CORPUSCULAR VOLUME 95 FL (80-99); MEAN PLATELET VOLUME 10.5 FL (7.4-10.4); MONOCYTES # (AUTO) 0.9 X 10^3 (0.0-1.0); MONOCYTES % (AUTO) 12 % (0-12); NEUTROPHILS # (AUTO) 4.8 X 10^3 (1.8-7.8); NEUTROPHILS % (AUTO) 64 % (42-75); PLATELET COUNT 135 10^3/uL (130-400); RED BLOOD COUNT 4.08 10^6/uL (4.35-5.85); RED CELL DISTRIBUTION WIDTH 14.3 % (10.0-14.5); WHITE BLOOD COUNT 7.5 10^3/uL (4.3-11.0)
[2018-02-25 04:06] LABS: BUN/CREATININE RATIO 20; CALCIUM 8.8 MG/DL (8.5-10.1); CARBON DIOXIDE 30 MMOL/L (21-32); CHLORIDE 100 MMOL/L (98-107); CREATININE SERUM 0.71 MG/DL (0.60-1.30); GFR ESTIMATED > 60; GLUCOSE 86 MG/DL (70-105); MAGNESIUM 1.6 MG/DL (1.8-2.4); PHOSPHORUS 3.1 MG/DL (2.3-4.7); POTASSIUM 4.2 MMOL/L (3.6-5.0); SODIUM 140 MMOL/L (135-145)
[2018-02-25] MEDS: MAGNESIUM 1 GM/100 ML IVPB 100 ML IV SCH ×4 (04:55→08:30)
[2018-02-25] MEDS: LACTATED RINGERS 1,000 ML IV SCH ×3 (04:56→18:17)
[2018-02-25] MEDS ORDERED: KCL 20 MEQ TAB (K-DUR) PO SCH (06:00)
[2018-02-25] MEDS ORDERED: MAGNESIUM 1 GM/100 ML IVPB 100 ML IV SCH (06:00)
[2018-02-25] MEDS ORDERED: methylPREDNISolone 40 MG/ML (Solu-MEDROL) VIAL ONE (06:00)
[2018-02-25] MEDS ORDERED: POTASSIUM CL 10MEQ/50ML IVPB 50 ML IV SCH (06:00)
--- NOTE | 2018-02-25 06:01 | Pulmonary Consultation ---
History of Present Illness History of Present Illness Date of Consultation 02/25/18 05:56 Time Seen by Provider: 05:56 Date of Admission History of Present Illness 72yo patient who was directly admitted from my office yesterday secondary to hypoxia, worsening SOB, CP, dehydrations and s/p fall hitting the back of his head. Pt is a referral from the [place] and i was seeing as a new patient. He has been loosing weight and has been having worsening SOB. No productive cough or hemoptysis. He states he has been using his wifes oxygen secondary to extreme SOB. He is having difficulty sleeping at night secondary to SOB and also waking up SOB. He appears dehydrated and malnutrition. CT of chest shows right spiculated lung mass and rib fractures. Allergies and Home Medications Allergies Coded Allergies: lidocaine (Verified Allergy, Severe, 04/16/16) procaine (Verified Allergy, Severe, 04/16/16) Home Medications Albuterol Sulfate 1 Puff Puff, 2 PUFF IH QID PRN for SHORTNESS OF BREATH, ( Reported) 1 PUFF = 90 MCG Albuterol/Ipratropium 4 Gm Aero, 1 PUFF IH QID, (Reported) Alprazolam 1 Mg Tablet, 1 MG PO TID PRN for ANXIETY, (Reported) Budesonide/Formoterol Fumarate 10.2 Gm Hfa.aer.ad, 2 PUFF IH BID, (Reported) Naproxen Sodium 220 Mg Tablet, 220 MG PO Q8H PRN for PAIN-MILD, (Reported) Past Glivdrw-Hybcii-Lcqgrr Hx Patient Social History Alcohol Use: Occasionally Uses Alcohol Beverage of Choice: Vodka Recreational Drug Use: No Smoking Status: Current Everyday Smoker Type Used: Cigarettes Recent Foreign Travel: No Contact w/Someone Who Travel: No Recent Infectious Disease Expo: No Recent Hopitalizations: No Immunizations Up To Date Tetanus Booster (TDap): Unknown Date of Pneumonia Vaccine: Feb 14, 2015 Date of Influenza Vaccine: Mar 18, 2016 Seasonal Allergies Seasonal Allergies: Yes Past Medical History Surgeries: Yes (SKIN LESIONS REMOVERD) Respiratory: Yes Asthma, COPD Currently Using CPAP: No Currently Using BIPAP: No Cardiac: No Neurological: No Reproductive Disorders: No Sexually Transmitted Disease: No HIV/AIDS: No Genitourinary: No Gastrointestinal: Yes (WEIGHT LOSS) Chronic Constipation Musculoskeletal: No Endocrine: No HEENT: Yes Loss of Vision: Bilateral Hearing Impairment: Hard of Hearing Cancer: Yes Skin Psychosocial: Yes Sleep Difficulties, Anxiety, PTSD Integumentary: No Blood Disorders: No Adverse Reaction/Blood Tranf: No (N/A) Review of Systems Time Seen by Provider: 06:19 Constitutional: Sweats, Weakness, Malaise Eyes: No: Pain, Vision change, Conjunctivae inflammation, Eyelid inflammation, Other, Redness ENT: Nose congestion; No: Ear pain, Ear discharge, Nose pain, Nose discharge, Mouth pain, Mouth swelling, Throat pain, Throat swelling, Other Respiratory: Cough, Dry, Shortness of breath, SOB with excertion, Wheezing, Pleuritic Pain; No: Hemoptysis Cardiovascular: Chest Pain, Palpitations, Paroxysmal Noc. Dyspnea Gastrointestinal: No: Nausea, Vomiting, Abdominal Pain, Diarrhea, Constipation , Melena, Hematochezia, Other Neurological: Weakness, Incoordination, Confusion Sepsis Event Evaluation Height, Weight, BMI Height: 5'10.00" Weight: 118lbs. 0.0oz. 53.318479pc; 17.5 BMI Method: Exam Exam Vital Signs Date Time Temp Pulse Resp B/P (MAP) Pulse Ox O2 Delivery O2 Flow Rate FiO2 02/25/18 05:00 66 22 138/69 (92) 95 Nasal Cannula 2.00 02/25/18 04:00 95 Nasal Cannula 2.00 02/25/18 04:00 61 28 135/69 (91) 96 Nasal Cannula 2.00 02/25/18 03:45 98.2 02/25/18 03:23 70 16 99 Nasal Cannula 2.00 02/25/18 03:13 96 Nasal Cannula 4.00 02/25/18 03:00 66 23 120/59 (79) 97 Nasal Cannula 4.00 02/25/18 02:00 68 20 139/62 (87) 98 Nasal Cannula 4.00 02/25/18 01:00 67 02/25/18 01:00 67 24 123/65 (84) 100 Nasal Cannula 4.00 02/25/18 00:05 98.0 02/25/18 00:00 68 22 118/60 (79) 99 Nasal Cannula 4.00 02/24/18 23:45 95 Nasal Cannula 4.00 02/24/18 23:00 68 12 129/69 (89) 99 Nasal Cannula 4.00 02/24/18 22:04 Nasal Cannula 4.00 02/24/18 22:00 73 20 130/73 (92) 94 Nasal Cannula 4.00 02/24/18 21:59 88 Nasal Cannula 1.00 02/24/18 21:00 71 27 129/66 (87) 92 Nasal Cannula 1.00 02/24/18 20:20 95 Nasal Cannula 1.00 02/24/18 20:00 69 23 130/68 (88) 93 Nasal Cannula 1.00 02/24/18 19:45 97.6 02/24/18 19:00 83 02/24/18 19:00 83 23 128/67 (87) 94 Nasal Cannula 1.00 02/24/18 18:00 84 38 122/90 (101) 95 Nasal Cannula 1.00 02/24/18 17:00 70 19 139/65 (89) 92 Nasal Cannula 1.00 02/24/18 16:00 75 13 127/61 (83) 94 Nasal Cannula 1.00 02/24/18 15:45 76 31 120/64 (82) 93 Nasal Cannula 1.00 02/24/18 15:30 76 26 130/71 (90) 95 Nasal Cannula 1.00 02/24/18 15:15 73 31 122/59 (80) 98 Nasal Cannula 1.00 02/24/18 15:01 86 02/24/18 15:00 75 19 97/55 (69) 85 Nasal Cannula 1.00 02/24/18 14:45 Nasal Cannula 1.00 02/24/18 14:45 97.7 75 24 97/55 (69) 99 Nasal Cannula 1.00 I & O 02/25/18 07:00 Intake Total 2655 ml Output Total 850 ml Balance 1805 ml Height & Weight Height: 5'10.00" Weight: 118lbs. 0.0oz. 53.578065lq; 17.5 BMI Method: General Appearance: Chronically ill, Mild Distress, Thin Respiratory: Decreased Breath Sounds Cardiovascular: Regular Rate, Rhythm, No Edema, No Gallop Capillary Refill: Less Than 3 Seconds Gastrointestinal: normal bowel sounds, non tender, soft Extremity: Normal Capillary Refill Neurologic/Psychiatric: Alert, Oriented x3 Skin: Normal Color, Warm/Dry Lymphatic: No Adenopathy Results Lab Laboratory Tests 02/24/18 15:37 02/25/18 03:10 Assessment/Plan Assessment/Plan COPDAE with hypoxia -Pt will need home 02 -SVNS, steroids -Check ABG Rib fractures left 01-20 Malnutrition/debility and dehydration -PT/OT -IVF Lung Mass with probable cancer -PT needs bronchoscopy with EBUS -Will do tomorrow morning S/p fall hitting back of head -Ct of head is negative PATY JOHNSON DO Feb 25, 2018 06:01
[2018-02-25] MEDS: methylPREDNISolone 40 MG/ML (Solu-MEDROL) VIAL IV SCH ×4 (06:05→23:47)
[2018-02-25 07:40] LABS: ABG BASE EXCESS 11.6 MMOL/L (-2.5-2.5); ABG OXYGEN SATURATION 94 % (94-100); ABG PCO2 65 MMHG (35-45); ABG PH 7.38 (7.37-7.43); ABG PO2 73 MMHG (79-93); ABG TCO2 39.4 MMOL/L (21.0-31.0); ALLENS TEST POSITIVE; INSPIRED O2 1 L; PATIENT TEMP 97.1; VENTILATOR NO
[2018-02-25] MEDS ORDERED: LORazepam INJ 2 MG/ML (ATIVAN) VIAL IVP PRN (08:00)
[2018-02-25] MEDS: PANTOPRAZOLE 40 MG (PROTONIX) VIAL IV SCH (08:28)
[2018-02-25] MEDS ORDERED: IPRA4AER IH (08:29)
[2018-02-25] MEDS ORDERED: RT-ALBUINH IH (08:29)
[2018-02-25] MEDS ORDERED: BUDE10.2 IH (08:29)
--- NOTE | 2018-02-25 08:41 | Diagnostic Imaging Report ---
INDICATION: COPD exacerbation, ICU management. TECHNIQUE: Single view chest at 3:18 AM. CORRELATION STUDY: None. FINDINGS: There are chronic appearing changes in the lung parenchyma of COPD. There is an irregular density in the right suprahilar region corresponding to the recently identified mass on the chest CT. Fullness in the right hilum may be somewhat accentuated by prominent vascular structures and patient positioning. No new infiltrate. The heart size and vasculature are overall within normal limits. IMPRESSION: Changes of chronic lung disease. Density in the right suprahilar region corresponds to the recently identified pulmonary mass. Fullness in the right afshan is likely accentuated by technique and prominent central pulmonary vasculature. Dictated by: Dictated on workstation # [id number]
--- NOTE | 2018-02-25 08:54 | History & Physical-Hospitalist ---
History of Present Illness Date Seen 02/25/18 Attending Physician Hollis Yuen MD PCP Andrea Mckeon DO Referring Physician Date of Admission Feb 24, 2018 at 14:40 Home Medications & Allergies Home Medications Reviewed patient Home Medication Reconciliation performed by pharmacy medication reconciliations composite technician and/or nursing. Patients Allergies have been reviewed. Allergies Allergies Coded Allergies lidocaine (Verified Allergy, Severe, 04/16/16) procaine (Verified Allergy, Severe, 04/16/16) Past Umvsrus-Yvpjzl-Zffrpz Hx Patient Social History Alcohol Use: Occasionally Uses Alcohol Beverage of Choice: Vodka Recreational Drug Use: No Smoking Status: Current Everyday Smoker Type Used: Cigarettes Physical Abuse Screen: No Sexual Abuse: No Recent Foreign Travel: No Contact w/other who traveled: No Recent Hopitalizations: No Recent Infectious Disease Expo: No Immunizations Up To Date Tetanus Booster (TDap): Unknown Date of Pneumonia Vaccine: Feb 14, 2015 Date of Influenza Vaccine: Mar 18, 2016 Seasonal Allergies Seasonal Allergies: Yes Past Medical History Currently Using CPAP: No Currently Using BIPAP: No Reproductive: No Sexually Transmitted Disease: No HIV/AIDS: No Gastrointestinal: Chronic Constipation Loss of Vision: Bilateral Hearing Impairment: Hard of Hearing Cancer: Skin Psychosocial: Sleep Difficulties, Anxiety, PTSD History of Blood Disorders: No Adverse Reaction to Blood Viramontes: No (N/A) Physical Exam Physical Exam Vital Signs Vital Signs - First Documented Capillary Refill : Less Than 3 Seconds Height, Weight, BMI Height: 5'10.00" Weight: 118lbs. 0.0oz. 53.302447ig; 17.5 BMI Method: Results Results/Procedures Labs Laboratory Tests 02/24/18 15:37 02/25/18 03:10 Patient resulted labs reviewed. Clinical Quality Measures DVT/VTE Risk/Contraindication: Risk Factor Score Per Nursin RFS Level Per Nursing on Admit: 3=High GLO BYRD DO Feb 25, 2018 08:54
--- NOTE | 2018-02-25 14:25 | History & Physical-Hospitalist ---
History of Present Illness HPI/Chief Complaint The patient is a 72-year-old white male admitted to the hospitalist service from Dr. Calles's office. The patient had apparently been referred to Dr. Calles through the [facility] system for evaluation of a pulmonary mass. He has had significant weight loss in excess of 30 pounds. He is a lifelong smoker who only recently started on other sources for nicotine. He has been so weak as to mostly lying in bed. He is very and a seated looks much older than his stated age. Examination of the CT scan of the chest shows a 2.5 cm spiculated mass in the upper portion of the right lower lobe and adjacent to the posterior chest wall Date Seen 02/25/18 Time Seen by a Provider: 14:20 Attending Physician Hollis Corrales MD PCP Andrea Mckeon DO Referring Physician Date of Admission Feb 24, 2018 at 14:40 Home Medications & Allergies Home Medications Reviewed patient Home Medication Reconciliation performed by pharmacy medication reconciliations laboratory mechanical technician and/or nursing. Patients Allergies have been reviewed. Allergies Allergies Coded Allergies lidocaine (Verified Allergy, Severe, 04/16/16) procaine (Verified Allergy, Severe, 04/16/16) Past Fzqkchc-Iraklj-Ophnmm Hx Patient Social History Alcohol Use: Occasionally Uses Alcohol Beverage of Choice: Vodka Recreational Drug Use: No Smoking Status: Current Everyday Smoker Type Used: Cigarettes Physical Abuse Screen: No Sexual Abuse: No Recent Foreign Travel: No Contact w/other who traveled: No Recent Hopitalizations: No Recent Infectious Disease Expo: No Immunizations Up To Date Tetanus Booster (TDap): Unknown Date of Pneumonia Vaccine: Feb 14, 2015 Date of Influenza Vaccine: Mar 18, 2016 Seasonal Allergies Seasonal Allergies: Yes Past Medical History Currently Using CPAP: No Currently Using BIPAP: No Reproductive: No Sexually Transmitted Disease: No HIV/AIDS: No Gastrointestinal: Chronic Constipation Loss of Vision: Bilateral Hearing Impairment: Hard of Hearing Cancer: Skin Psychosocial: Sleep Difficulties, Anxiety, PTSD History of Blood Disorders: No Adverse Reaction to Blood Viramontes: No (N/A) Review of Systems Constitutional: other (very emaciated and chronically ill-appearing) Physical Exam Physical Exam Vital Signs Vital Signs - First Documented Capillary Refill : Less Than 3 Seconds Height, Weight, BMI Height: 5'10.00" Weight: 118lbs. 0.0oz. 53.258043um; 17.5 BMI Method: Results Results/Procedures Labs Laboratory Tests 02/24/18 15:37 02/25/18 03:10 Patient resulted labs reviewed. Clinical Quality Measures DVT/VTE Risk/Contraindication: Risk Factor Score Per Nursin RFS Level Per Nursing on Admit: 3=High HOLLIS CORRALES MD Feb 25, 2018 14:25
[2018-02-25] MEDS: ENOXAPARIN 30 MG/0.3 ML (LOVENOX) SYR SC SCH (16:24)
[2018-02-25] MEDS: morphine INJ 4 MG/ML 1 ML (VIAL/SYRINGE) IVP PRN ×3 (16:33→23:48)
[2018-02-25] MEDS: ALPRAZolam 1 MG (XANAX) TAB PO PRN (18:17)
[2018-02-26] VITALS: BP 113/55
[2018-02-26] MEDS: RT-ALBUTEROL/IPRATROPIUM 3 ML (DUONEB) VIAL IH SCH ×6 (02:30→22:17)
[2018-02-26] MEDS: morphine INJ 4 MG/ML 1 ML (VIAL/SYRINGE) IVP PRN ×7 (02:50→22:08)
[2018-02-26 04:34] VITALS: BP 127/63
[2018-02-26] MEDS: methylPREDNISolone 40 MG/ML (Solu-MEDROL) VIAL IV SCH ×4 (05:44→22:54)
--- NOTE | 2018-02-26 07:15 | Pulmonary Progress Note ---
Subjective Time Seen by a Provider: 07:29 Subjective/Events-last exam PT is very upset and yelling at his family that he doesn't want procedure and he wants a second opinion. Pt thinks his lung mass is on left instead of right which is why he wants second opinion. I printed off CT report and gave it to him and I also showed him the images at the bedside with family present. Family wants patient to have procedure. After in depth discussion with patient and family he is willing to have procedure. I am planning on doing a bronchoscopy with EBUS. HE also understands if cytology is negative we may have to get a CT guided bx. Sepsis Event Evaluation Height, Weight, BMI Height: 5'10.00" Weight: 111lbs. 8.0oz. 50.645328jy; 17.5 BMI Method: Exam Exam Vital Signs Date Time Temp Pulse Resp B/P (MAP) Pulse Ox O2 Delivery O2 Flow Rate FiO2 02/26/18 04:34 97.0 64 16 127/63 (84) 94 Nasal Cannula 1.50 02/26/18 02:30 93 Nasal Cannula 1.50 02/26/18 01:00 70 02/26/18 00:00 97.3 65 16 113/55 (74) 97 Nasal Cannula 2.00 02/25/18 22:38 92 Nasal Cannula 1.50 02/25/18 19:54 96.4 67 18 115/57 (76) 95 Nasal Cannula 2.00 02/25/18 19:02 93 Nasal Cannula 1.50 02/25/18 19:00 73 02/25/18 16:14 97.3 65 18 105/51 (69) 98 Nasal Cannula 2.00 02/25/18 15:04 96 Room Air 2.00 02/25/18 13:00 72 30 98 Nasal Cannula 2.00 02/25/18 13:00 97.5 62 20 130/58 (82) 98 Nasal Cannula 2.00 02/25/18 12:00 70 16 116/53 (74) 98 Nasal Cannula 2.00 02/25/18 11:08 96 Room Air 02/25/18 11:00 73 20 111/67 (82) 97 Nasal Cannula 2.00 02/25/18 10:00 64 26 121/64 (83) 93 Nasal Cannula 2.00 10/17/18 09:00 64 27 134/63 (86) 91 Nasal Cannula 2.00 02/25/18 08:00 95 Nasal Cannula 2.00 02/25/18 08:00 61 19 130/65 (86) 93 Nasal Cannula 2.00 I & O 02/26/18 07:00 Intake Total 555 ml Output Total 1150 ml Balance -595 ml Height & Weight Height: 5'10.00" Weight: 111lbs. 8.0oz. 50.520669zg; 17.5 BMI Method: General Appearance: Anxious, Chronically ill, Mild Distress, Thin HEENT: PERRL/EOMI, Pharynx Normal Respiratory: Decreased Breath Sounds Cardiovascular: Regular Rate, Rhythm, No Edema, No Gallop Capillary Refill: Less Than 3 Seconds Gastrointestinal: normal bowel sounds, non tender, soft Extremity: Normal Capillary Refill Neurologic/Psychiatric: Alert, Oriented x3 Skin: Normal Color, Warm/Dry Lymphatic: No Adenopathy Results Lab Laboratory Tests 02/24/18 15:37 02/25/18 03:10 Assessment/Plan Assessment/Plan COPDAE with hypoxia -Pt will need home 02 -SVNS, steroids Chronic respiratory failure -ABG shows C02 of 65. Rib fractures left - -Pt complains of minimal pain Malnutrition/debility and dehydration -PT/OT -IVF Lung Mass with probable cancer -PT needs bronchoscopy with EBUS -Will do this AM S/p fall hitting back of head -Ct of head is negative PT is anxious to go home. If he does ok after procedure today. I am ok with him being discharged. I will f/u with him in office next week. 60min was spent with patient, family and medical staff discussing details of patients current condition. I also showed patient and family CT images of chest. I have answered all of their questions regarding current medical condition and plan of care. PATY JOHNSON DO Feb 26, 2018 07:15
[2018-02-26 08:00] VITALS: BP 118/57
[2018-02-26] MEDS: PANTOPRAZOLE 40 MG (PROTONIX) VIAL IV SCH (08:10)
[2018-02-26] MEDS: LACTATED RINGERS 1,000 ML IV SCH ×2 (08:10→11:10)
[2018-02-26] MEDS ORDERED: PROPOFOL INJECTION 50 ML IV ONE (09:26)
[2018-02-26] MEDS ORDERED: proPOfol 200 MG/20 ML (DIPRIVAN) VIAL IV ONE (09:26)
[2018-02-26] MEDS ORDERED: ONDANSETRON 4 MG/2 ML (SDV) Z0FRAN ONE (09:27)
[2018-02-26] MEDS ORDERED: DEXAMETHASONE 10 MG/ML (DECADRON) 1 ML VIAL ONE (09:27)
[2018-02-26] MEDS ORDERED: fentaNYL INJECTION 100 MCG/2 ML AMP ONE (09:27)
[2018-02-26] MEDS ORDERED: ROCURONIUM 10 MG/ML 5 ML SYRINGE IV ONE (09:28)
[2018-02-26] MEDS ORDERED: NEOSTIGMINE 1 MG/ML 5 ML SYRINGE ONE (10:42)
[2018-02-26] MEDS ORDERED: GLYCOPYRROLATE 0.2 MG/ML (ROBINUL) 2 ML VIAL ONE (10:42)
[2018-02-26] MEDS ORDERED: LACTATED RINGERS 1,000 ML IV ONE (10:51)
[2018-02-26] MEDS ORDERED: LIDOCAINE PF 1% 5 ML SYRINGE (ANLIKER/BAILEY ONLY) INJ ONE (11:12)
[2018-02-26] MEDS ORDERED: ONDANSETRON 4 MG/2 ML (SDV) Z0FRAN IVP PRN (11:15)
[2018-02-26] MEDS ORDERED: HYDROmorphone 2 MG/ML VIAL (DILAUDID) IV ONE (11:15)
--- NOTE | 2018-02-26 11:51 | Diagnostic Imaging Report ---
INDICATION: Post bronchoscopy. PA chest at 11:34 AM FINDINGS: There are emphysematous changes in the lungs. There is some right perihilar atelectasis. There is no effusion or pneumothorax. IMPRESSION: COPD. Right perihilar atelectasis. Dictated by: Dictated on workstation # [id number]
[2018-02-26 12:00] VITALS: BP 105/59
--- NOTE | 2018-02-26 12:01 | Diagnostic Imaging Report ---
INDICATION: Fluoroscopy for bronchoscopy. Fluoroscopy was provided for Dr. Calles during bronchoscopy. 53 seconds of fluoroscopic time was utilized. IMPRESSION: Fluoroscopy during bronchoscopy. Dictated by: Dictated on workstation # [id number]
--- NOTE | 2018-02-26 12:33 | Progress Note-Hospitalist ---
Subjective HPI/CC On Admission Date Seen by Provider: Feb 26, 2018 Time Seen by Provider: 12:20 The patient is a 72-year-old white male admitted to the hospitalist service from Dr. Calles's office. The patient had apparently been referred to Dr. Calles through the [place] [facility] system for evaluation of a pulmonary mass. He has had significant weight loss in excess of 30 pounds. He is a lifelong smoker who only recently started on other sources for nicotine. He has been so weak as to mostly lying in bed. He is very and a seated looks much older than his stated age. Examination of the CT scan of the chest shows a 2.5 cm spiculated mass in the upper portion of the right lower lobe and adjacent to the posterior chest wall Subjective/Events-last exam Patient had uncomplicated bronchoscopy but did have a lot of biopsies performed so will stay the night Pain is controlled Patient slightly drowsy from procedure A lot of family input during my interview Review of Systems General: Fatigue Objective Exam Vital Signs Vital Signs Date Time Temp Pulse Resp B/P (MAP) Pulse Ox O2 Delivery O2 Flow Rate FiO2 02/26/18 09:56 16 02/26/18 08:00 97.7 64 118/57 (77) 96 Nasal Cannula 2.00 Capillary Refill : Less Than 3 Seconds General Appearance: No Apparent Distress, WD/WN, Chronically ill, Cachetic Respiratory: Chest Non Tender, Lungs Clear, Normal Breath Sounds, No Accessory Muscle Use, No Respiratory Distress Cardiovascular: Regular Rate, Rhythm, No Edema, No Gallop, No JVD, No Murmur, Normal Peripheral Pulses Neurologic/Psychiatric: Alert, Oriented x3, No Motor/Sensory Deficits, Normal Mood/Affect Results/Procedures Lab Patient resulted labs reviewed. Assessment/Plan Assessment and Plan Assess & Plan/Chief Complaint Assessment: Lung mass Cachexia Smoker Rib fractures Plan: DVT prophylaxis Pain control Oxygen Likely discharge tomorrow Diagnosis/Problems Diagnosis/Problems (1) Lung mass Status: Acute (2) Cachexia Status: Acute (3) Smoker Status: Chronic Clinical Quality Measures DVT/VTE Risk/Contraindication: Risk Factor Score Per Nursin RFS Level Per Nursing on Admit: 3=High GLO BYRD DO Feb 26, 2018 12:33
[2018-02-26] MEDS ORDERED: ACHD5005 PO (12:34)
[2018-02-26] MEDS: ALPRAZolam 1 MG (XANAX) TAB PO PRN ×2 (13:22→22:08)
[2018-02-26] MEDS: ENOXAPARIN 30 MG/0.3 ML (LOVENOX) SYR SC SCH (15:24)
[2018-02-26 16:15] VITALS: BP 115/58
[2018-02-26 20:59] VITALS: BP 121/57
[2018-02-27 00:21] VITALS: BP 122/64
[2018-02-27] MEDS: morphine INJ 4 MG/ML 1 ML (VIAL/SYRINGE) IVP PRN ×3 (01:16→06:26)
[2018-02-27] MEDS: LACTATED RINGERS 1,000 ML IV SCH ×2 (01:16→14:34)
[2018-02-27] MEDS: RT-ALBUTEROL/IPRATROPIUM 3 ML (DUONEB) VIAL IH SCH ×4 (02:08→16:00)
[2018-02-27 04:00] VITALS: BP 148/69
[2018-02-27] MEDS: methylPREDNISolone 40 MG/ML (Solu-MEDROL) VIAL IV SCH ×2 (06:25→11:57)
[2018-02-27] MEDS: ALPRAZolam 1 MG (XANAX) TAB PO PRN ×2 (06:25→16:48)
--- NOTE | 2018-02-27 07:08 | Pulmonary Progress Note ---
Subjective Time Seen by a Provider: 07:06 Subjective/Events-last exam No complications noted. Sepsis Event Evaluation Height, Weight, BMI Height: 5'10.00" Weight: 122lbs. 7.0oz. 55.305564ta; 17.5 BMI Method: Exam Exam Vital Signs Date Time Temp Pulse Resp B/P (MAP) Pulse Ox O2 Delivery O2 Flow Rate FiO2 02/27/18 06:52 95 Nasal Cannula 3.00 02/27/18 04:00 98.6 91 18 148/69 (95) 96 Nasal Cannula 2.00 02/27/18 02:10 97 Nasal Cannula 3.00 02/27/18 01:00 84 02/27/18 00:21 97.0 79 18 122/64 (83) 97 Nasal Cannula 2.00 02/26/18 22:18 93 Nasal Cannula 3.00 02/26/18 20:59 98.1 80 20 121/57 (78) 95 Nasal Cannula 2.00 02/26/18 20:00 Nasal Cannula 2.00 02/26/18 19:19 95 Nasal Cannula 3.00 02/26/18 19:00 68 02/26/18 16:15 98.0 76 18 115/58 (77) 94 Nasal Cannula 2.00 02/26/18 15:28 94 Nasal Cannula 3.00 02/26/18 13:00 62 02/26/18 12:00 96.5 74 16 105/59 (74) 92 Nasal Cannula 2.00 02/26/18 09:56 16 02/26/18 08:00 97.7 64 16 118/57 (77) 96 Nasal Cannula 2.00 02/26/18 08:00 96 Nasal Cannula 2.00 02/26/18 07:34 92 Nasal Cannula 1.50 I & O 02/27/18 07:00 Intake Total 2990 ml Output Total 425 ml Balance 2565 ml Height & Weight Height: 5'10.00" Weight: 122lbs. 7.0oz. 55.276089et; 17.5 BMI Method: General Appearance: No Apparent Distress, WD/WN, Chronically ill, Cachetic HEENT: PERRL/EOMI, Pharynx Normal Respiratory: Chest Non Tender, Lungs Clear, Normal Breath Sounds, No Accessory Muscle Use, No Respiratory Distress Cardiovascular: Regular Rate, Rhythm, No Edema, No Gallop, No JVD, No Murmur, Normal Peripheral Pulses Capillary Refill: Less Than 3 Seconds Gastrointestinal: normal bowel sounds, non tender, soft Extremity: Normal Capillary Refill Neurologic/Psychiatric: Alert, Oriented x3, No Motor/Sensory Deficits, Normal Mood/Affect Skin: Normal Color, Warm/Dry Lymphatic: No Adenopathy Assessment/Plan Assessment/Plan COPDAE with hypoxia -Pt will need home 02 -SVNS, steroids Chronic respiratory failure -ABG shows C02 of 65. Rib fractures left -11 -Pt complains of minimal pain Malnutrition/debility -PT/OT Lung Mass with probable cancer -S/P bronchoscopy with EBUS S/p fall hitting back of head -Ct of head is negative Pt is ok from pulmonary standpoint for discharge. I will see him in my office next week to go over results of bronchoscopy. PATY JOHNSON DO Feb 27, 2018 07:08
[2018-02-27 08:00] VITALS: BP 158/68
[2018-02-27] MEDS: PANTOPRAZOLE 40 MG (PROTONIX) VIAL IV SCH (08:54)
--- NOTE | 2018-02-27 09:23 | Anesthesia-General Post-Op ---
General Patient Condition Mental Status/LOC: Same as Preop Cardiovascular: Satisfactory Nausea/Vomiting: Absent Respiratory: Satisfactory Pain: Controlled Complications: Absent Post Op Complications Complications None Follow Up Care/Instructions Patient Instructions None needed. Anesthesia/Patient Condition Patient Condition Patient is doing well, no complaints, stable vital signs, no apparent adverse anesthesia problems. No complications reported per nursing. GUEVARA COMER CRNA Feb 27, 2018 09:23
--- NOTE | 2018-02-27 10:52 | Progress Note-Hospitalist ---
GLO BYRD DO 02/27/18 1052: Subjective HPI/CC On Admission Date Seen by Provider: Feb 27, 2018 Time Seen by Provider: 11:00 The patient is a 72-year-old white male admitted to the hospitalist service from Dr. Calles's office. The patient had apparently been referred to Dr. Calles through the [facility] system for evaluation of a pulmonary mass. He has had significant weight loss in excess of 30 pounds. He is a lifelong smoker who only recently started on other sources for nicotine. He has been so weak as to mostly lying in bed. He is very and a seated looks much older than his stated age. Examination of the CT scan of the chest shows a 2.5 cm spiculated mass in the upper portion of the right lower lobe and adjacent to the posterior chest wall Subjective/Events-last exam Urinary retention requiring nur catheter Needs Home O2 3L/Min Checked meds and labs Review of Systems General: Fatigue Genitourinary: Retention Objective Exam Vital Signs Vital Signs Date Time Temp Pulse Resp B/P (MAP) Pulse Ox O2 Delivery O2 Flow Rate FiO2 02/27/18 10:55 94 Nasal Cannula 3.00 02/27/18 08:00 99.6 84 20 158/68 (98) Capillary Refill : Less Than 3 Seconds General Appearance: No Apparent Distress, WD/WN, Chronically ill, Cachetic Respiratory: Chest Non Tender, Lungs Clear, Normal Breath Sounds, No Accessory Muscle Use, No Respiratory Distress, Decreased Breath Sounds Cardiovascular: Regular Rate, Rhythm, No Edema, No Gallop, No JVD, No Murmur, Normal Peripheral Pulses Neurologic/Psychiatric: Alert, Oriented x3, No Motor/Sensory Deficits, Normal Mood/Affect Skin: Normal Color, Warm/Dry Results/Procedures Lab Patient resulted labs reviewed. Assessment/Plan Assessment and Plan Assess & Plan/Chief Complaint Assessment: Lung mass Cachexia Smoker Rib fractures Urinary retention Plan: DVT prophylaxis Pain control Oxygen at home and DC once that is in place Urology consultation is appreciated Diagnosis/Problems Diagnosis/Problems (1) Lung mass Status: Acute (2) Cachexia Status: Acute (3) Smoker Status: Chronic (4) Urinary retention Status: Acute (5) Ribs, multiple fractures Status: Acute Qualifiers: Encounter type: subsequent encounter Fracture type: closed Laterality: right Fracture healing: with nonunion Qualified Codes: S22.41XK - Multiple fractures of ribs, right side, subsequent encounter for fracture with nonunion Clinical Quality Measures DVT/VTE Risk/Contraindication: Risk Factor Score Per Nursin RFS Level Per Nursing on Admit: 3=High NICOLE ROWAN MEDICAL STUDENT 02/27/18 1119: Subjective Subjective/Events-last exam Improving -- would like to go home Feels that he's become more tremulous. Describes being rather tremulous at baseline Likely a result of poor sleep & medical condition Had a poor night's sleep Often doesn't sleep well, naps throughout the day Having urinary retention & overflow incontinence: Bladder scan and likely home with cath Will f/u with Dr. Calles next week. Objective Exam General Appearance: No Apparent Distress, WD/WN HEENT: Normal ENT Inspection, Moist Mucous Membranes Respiratory: Chest Non Tender, Lungs Clear, Normal Breath Sounds, No Accessory Muscle Use, No Respiratory Distress Cardiovascular: Regular Rate, Rhythm, No Edema, No Gallop, No JVD, No Murmur, Normal Peripheral Pulses GLO BYRD DO Feb 27, 2018 10:52 NICOLE ROWAN MEDICAL STUDENT Feb 27, 2018 11:19
[2018-02-27] MEDS ORDERED: TAMSULOSIN 0.4 MG (FLOMAX) CAP PO SCH ×2 (11:00)
[2018-02-27] MEDS: BETHANECHOL 10 MG (URECHOLINE) TAB PO SCH ×2 (11:57→16:46)
[2018-02-27 12:00] VITALS: BP 137/68
[2018-02-27] MEDS ORDERED: HYDROcodone/APAP 5 MG/325 MG (LORTAB) TAB PO PRN (12:15)
[2018-02-27] MEDS ORDERED: PRED10TA22 PO (16:30)
[2018-02-27] MEDS ORDERED: BETH10TA PO (16:30)
[2018-02-27] MEDS ORDERED: TAMS0.4C98 PO (16:30)
--- NOTE | 2018-02-27 16:31 | Discharge Summary-Hospitalist ---
Diagnosis/Chief Complaint Date of Admission Feb 24, 2018 at 14:40 Date of Discharge Discharge Date: Feb 27, 2018 Discharge Diagnosis (1) Lung mass Status: Acute (2) Cachexia Status: Acute (3) Smoker Status: Chronic (4) Urinary retention Status: Acute (5) Ribs, multiple fractures Status: Acute Discharge Summary Discharge Physical Exam Allergies: Coded Allergies: lidocaine (Verified Allergy, Severe, 04/16/16) procaine (Verified Allergy, Severe, 04/16/16) Vitals & I&Os Vital Signs Date Time Temp Pulse Resp B/P (MAP) Pulse Ox O2 Delivery O2 Flow Rate FiO2 02/27/18 17:53 02/27/18 16:02 95 Nasal Cannula 3.00 02/27/18 12:00 98.6 78 20 General Appearance: No Apparent Distress, WD/WN, Chronically ill, Cachetic Respiratory: Chest Non Tender, Lungs Clear, Normal Breath Sounds, No Accessory Muscle Use, No Respiratory Distress Cardiovascular: Regular Rate, Rhythm, No Edema, No Gallop, No JVD, No Murmur, Normal Peripheral Pulses Neurologic/Psychiatric: Alert, Oriented x3, No Motor/Sensory Deficits, Normal Mood/Affect Hospital Course Hospital course: Patient was admitted from Dr. Calles's office due to lung mass and dehydration. Patient was supported underwent a bronchoscopy with biopsies was monitor closely but had urinary retention so Dotson catheter was placed in maintained. Bladder meds were given. Urology consultation reviewed the management and will have close follow-up with him to discontinue the catheter next week. Home oxygen was needed so those orders were set up and [facility] [place]. Overall poor prognosis and he will have a close follow-up with Dr. Calles for bronchoscopy biopsy results. Labs (last 24 hrs) Microbiology 02/26/18 Mycobacterial Culture - Preliminary, Resulted See Comments Patient resulted labs reviewed. Discussion & Recommendations Discharge Planning: <30 minutes discharge planning Discharge Home Medications: Active Scripts Active Prednisone 10 Mg Tab.ds.pk 10 Mg PO DAILY Take 6 tabs(60mg)daily,decrease by 1 tab(10MG)daily. Flomax (Tamsulosin HCl) 0.4 Mg Cap 0.4 Mg PO BID@0800,1800 Bethanechol Chloride 10 Mg Tablet 10 Mg PO ACHS Hydrocodone/Acetaminophen 5/325mg Tablet (Acetaminophen/Hydrocodone Bitart) 1 Tab Tab 1 Tab PO Q4-6HR PRN MDD 10 Reported Combivent Respimat Inhal [place] (Albuterol/Ipratropium) 4 Gm Aero 1 Puff IH QID Symbicort 160-4.5 Mcg Inhaler (Budesonide/Formoterol Fumarate) 10.2 Gm Hfa.aer.ad 2 Puff IH BID Proair Hfa (Albuterol Sulfate) 1 Puff Puff 2 Puff IH QID PRN 1 PUFF = 90 MCG Aleve (Naproxen Sodium) 220 Mg Tablet 220 Mg PO Q8H PRN Alprazolam 1 Mg Tablet 1 Mg PO TID PRN Instructions to patient/family Please see electronic discharge instructions given to patient. Clinical Quality Measures DVT/VTE Risk/Contraindication: Risk Factor Score Per Nursin RFS Level Per Nursing on Admit: 3=High Problem Qualifiers (1) Ribs, multiple fractures: Encounter type: subsequent encounter Fracture type: closed Laterality: right Fracture healing: with nonunion Qualified Codes: S22.41XK - Multiple fractures of ribs, right side, subsequent encounter for fracture with nonunion GLO BYRD DO Feb 27, 2018 16:31
[2018-02-27] MEDS: ENOXAPARIN 30 MG/0.3 ML (LOVENOX) SYR SC SCH (16:46)
[2018-02-27] MEDS ORDERED: DOCUSATE SODIUM 100 MG (COLACE) CAP PO SCH (21:00)
--- NOTE | 2018-02-27 21:54 | CONSULTATION REPORT ---
DATE OF SERVICE: 02/27/2018 ATTENDING PHYSICIAN: Dr. Mendoza. SUMMARY: I was asked by Dr. Mendoza to see this 72-year-old white man because of urinary retention. The patient claimed that he saw me before I could not find any records at the office. I will recheck on Friday when the office reopens again. He has been admitted because of a posterior right upper lobe lung mass 2.9 cm, highly suspicious of cancer. He has lost 30 pounds, complaint of weakness. He is a heavy smoker and has COPD. He is allergic to LIDOCAINE and PROCAINE. His sputum culture showed pseudomonas. The fungus culture is pending. He does have a history of voiding issues mostly in the form of nocturia, although never felt to have retention. He had a large amount of urine that was drained when the catheter was put in. He was subsequently started on Flomax 0.4 mg and Urecholine 10 mg a.c. and at bedtime. He has tolerated so far the Urecholine despite his COPD. IMPRESSION: 1. Urinary retention, BPH and/or neurogenic bladder. 2. Medical problems as per history. RECOMMENDATIONS: We will see how he tolerates the Urecholine. We may increase the dose later on and see if he tolerates that. We will manage on a daily basis. He may need a cystoscopy at that time, physical exam will be performed. The plan was fully explained to the patient and his . All their questions were answered. Job ID: [id number] DocumentID: [id number] Dictated Date: 02/27/2018 15:59:25 [employer] Dist[employer] Operator Date: 02/27/2018 21:53:41 Dictated By: PURA GRIMALDO MD [facility]
--- NOTE | 2018-03-04 10:42 | Pulmonary Procedures ---
Pulmonary Procedures Date of Procedure Date of Service: Feb 26, 2018 Bronch Bronchoscopy with fluoroscopy RML wash, BAL, and RLL wash. EBUS was used to obtain bx of station 7, 4L and 10L lymph nodes under US guidance Preop DX: [mediastinal lymphadenopathy] PostOP DX: same Complications: None Pt was sedated per anesthesia. Bronchoscopy was advanced through the ET tube and an anatomical undertaken down to the segmental bronchi bilaterally. No endobronchial lesions noted. Bronchoscopy with fluoroscopy RML wash, BAL, and RLL wash. EBUS was used to obtain bx of station 7, 4L and 10L lymph nodes under US guidance. Pt tolerated procedure well. No complications noted. PATY JOHNSON DO Mar 04, 2018 10:42
== END 2018-02-27 17:50 | disposition home or self-care (01) | DRG 167 ==
LOC: ICU 14:40 → 4TH 02-25 13:50
PROVIDERS: ADMIT Internal Medicine; ATTEND Internal Medicine
PROC: 0B958ZX Drainage of Right Middle Lobe Bronchus, Via Natural or Artificial Opening Endoscopic, Diagnostic (ICD-10-PCS; principal; 2018-02-26 09:25)
PROC: 0B9D8ZX Drainage of Right Middle Lung Lobe, Via Natural or Artificial Opening Endoscopic, Diagnostic (ICD-10-PCS; principal; 2018-02-26 09:25)
PROC: 07B74ZX Excision of Thorax Lymphatic, Percutaneous Endoscopic Approach, Diagnostic (ICD-10-PCS; principal; 2018-02-26 09:25)
PROC: 0B968ZX Drainage of Right Lower Lobe Bronchus, Via Natural or Artificial Opening Endoscopic, Diagnostic (ICD-10-PCS; principal; 2018-02-26 09:25)
DX: C34.31 Malignant neoplasm of lower lobe, right bronchus or lung (principal); S22.42XA Multiple fractures of ribs, left side, initial encounter for closed fracture; E46 Unspecified protein-calorie malnutrition; R64 Cachexia; J44.1 Chronic obstructive pulmonary disease with (acute) exacerbation; J96.10 Chronic respiratory failure, unspecified whether with hypoxia or hypercapnia; E86.0 Dehydration; F17.210 Nicotine dependence, cigarettes, uncomplicated; J30.2 Other seasonal allergic rhinitis; R53.81 Other malaise; G47.9 Sleep disorder, unspecified; F41.9 Anxiety disorder, unspecified; N31.9 Neuromuscular dysfunction of bladder, unspecified; N40.1 Benign prostatic hyperplasia with lower urinary tract symptoms; R33.8 Other retention of urine; N39.490 Overflow incontinence; F43.10 Post-traumatic stress disorder, unspecified; K59.09 Other constipation; Z85.828 Personal history of other malignant neoplasm of skin; W19.XXXA Unspecified fall, initial encounter
CPT/HCPCS: 36415; 36600; 70470; 71045; 71275; 80048; 80053; 81000; 82805; 83735; 84100; 84484; 85025; 87015; 87070; 87077; 87081; 87101; 87116; 87185; 87186; 87205; 87206; 88112; 88305; 88312; 93005; 94640; 94760; 94761

== ENCOUNTER → 2018-10-07 | Outpatient (CLI) | payer MEDICARE, OTHER ==
[~2018-10-07] MED LIST changes: +ACHD5005 PO; +ALPR1TAB7 PO; +BETH10TA PO; +BUDE10.2 IH; +INHALER; +IPRA4AER IH; +NAPR220T66 PO; +PRED10TA22 PO; +TAMS0.4C98 PO
--- NOTE | 2018-10-07 14:04 | Diagnostic Imaging Report ---
PROCEDURE: CT chest with contrast only. TECHNIQUE: Multiple contiguous axial images were obtained through the chest after administration of intravenous contrast. Auto Exposure Controls were utilized during the CT exam to meet ALARA standards for radiation dose reduction. INDICATION: Lung carcinoma. COMPARISON: Correlation is made with prior CT chest from 02/24/2018. FINDINGS: No axillary lymphadenopathy is seen. No definite hilar or mediastinal lymphadenopathy is detected. No pericardial or pleural fluid is identified. Parenchymal evaluation again demonstrates centrilobular emphysematous changes in both lungs. Spiculated mass in the right upper lobe has increased in size. This now measures 3.5 cm AP x 3.2 cm transverse compared with 2.8 cm AP x 2.6 cm transverse on prior exam. There is some scarring versus atelectasis or infiltrate in the posterior aspect of the right lower lobe and left lower lobe. No other masses are detected. Upper abdomen is unremarkable. IMPRESSION: 1. There has been mild increase in size of a spiculated mass in the right upper lobe when compared with prior CT chest from 02/24/2018. Features remain suggestive of primary bronchogenic carcinoma. No hilar or mediastinal lymphadenopathy is detected. There is a normal-sized right paratracheal lymph node present. Dictated by: Dictated on workstation # [id number]
== END ==
LOC: RAD 12:29
PROVIDERS: ATTEND Nurse Practitioner Adult Health
DX: C34.90 Malignant neoplasm of unspecified part of unspecified bronchus or lung (principal)
CPT/HCPCS: 71260

== ENCOUNTER → 2018-11-24 | Outpatient (CLI) | payer OTHER ==
--- NOTE | 2018-11-24 14:30 | Diagnostic Imaging Report ---
INDICATION: Lung mass, hypoxemia. TECHNIQUE: Serum blood glucose level at the time of injection is 104 mg/dL. The patient was administered 11.6 mCi F-18 FDG intravenously in the left forearm and PET imaging was performed from the top of the skull through the mid thighs. Noncontrast CT was also performed for attenuation correction and anatomic correlation. COMPARISON: No prior PET studies available for comparison. Comparison is made with prior CT chest from 10/07/2018. FINDINGS: There is symmetric activity throughout the brain. Soft tissues of the neck demonstrate a hypermetabolic nodule in the right neck adjacent to the right mandible which demonstrates an SUV max of approximately 5.3 cm. This corresponds to probable lymph node at this location measuring 12 mm x 8 mm on the noncontrast CT. No other areas of hypermetabolism in the neck are identified. There is a hypermetabolic mass in the right upper lobe corresponding to the CT abnormality. This demonstrates an SUV max of approximately 11. No mediastinal or hilar hypermetabolism is seen. No more pulmonary parenchymal abnormalities are identified. Imaging through the abdomen and pelvis demonstrates physiologic activity within the GI and tracts. There is some muscular uptake in the right psoas muscle. IMPRESSION: 1. Hypermetabolic right upper lobe lung mass, suggestive of primary bronchogenic neoplasm. No mediastinal or hilar hypermetabolism is seen. Note is made of a mildly hypermetabolic lymph node in the right submandibular region. Dictated by: Dictated on workstation # [id number]
== END ==
LOC: RAD 10:25
PROVIDERS: ATTEND Nurse Practitioner Family
DX: J44.9 Chronic obstructive pulmonary disease, unspecified (principal); F17.200 Nicotine dependence, unspecified, uncomplicated; R91.8 Other nonspecific abnormal finding of lung field

== ENCOUNTER 2018-12-04 08:56 | Outpatient (CLI) | payer OTHER ==
[~2018-12-04] VITALS: Ht 170.2 cm; Wt 51.9 kg
[2018-12-04] VITALS (9 sets, daily range): BP systolic 83–125; BP diastolic 42–73
[2018-12-04] MEDS: MIDAZOLAM 2 MG/2 ML (VERSED) VIAL IVP ONE ×2 (09:20→10:31)
[2018-12-04] MEDS: fentaNYL INJECTION 100 MCG/2 ML AMP IVP ONE ×2 (09:20→10:31)
[2018-12-04 09:24] LABS: MEAN PLATELET VOLUME 10.2 FL (7.4-10.4); RED CELL DISTRIBUTION WIDTH 13.6 % (10.0-14.5); WHITE BLOOD COUNT 8.5 10^3/uL (4.3-11.0)
[2018-12-04 09:36] LABS: INR 0.9 (0.8-1.4); PROTHROMBIN TIME PATIENT 12.5 SEC (12.2-14.7)
[2018-12-04] MEDS ORDERED: NS IV 1000 ML 1,000 ML IV STA (09:45)
[2018-12-04] MEDS ORDERED: LIDOCAINE 1% INJ 20 ML 20 ML VIAL INJ ONE (09:45)
[2018-12-04] MEDS ORDERED: MIDAZOLAM 2 MG/2 ML (VERSED) VIAL ONE (10:01)
[2018-12-04] MEDS ORDERED: NS IV 1000 ML 1,000 ML ONE (10:01)
[2018-12-04] MEDS ORDERED: fentaNYL INJECTION 100 MCG/2 ML AMP ONE (10:01)
[2018-12-04] MEDS ORDERED: LIDOCAINE 1% INJ 20 ML 20 ML VIAL ONE (10:27)
[2018-12-04] MEDS ORDERED: HYDROcodone/APAP 5 MG/325 MG (LORTAB) TAB PO PRN (11:00)
--- NOTE | 2018-12-04 11:00 | NUR ---
PATIENT BROUGHT BACK FROM PROCEDURE TO ROOM SDC17 BY HUYEN CAZARES. BEDSIDE REPORT GIVEN, PATIENT BACK ON NC3L WITH GUAZE/OPSITE TO RIGHT UPPER BACK. NO COMPLAINTS AT THIS TIME.
--- NOTE | 2018-12-04 13:27 | NUR ---
scan negative for any pneumothorax telephone dr. maegan Ram
--- NOTE | 2018-12-04 16:00 | Diagnostic Imaging Report ---
INDICATION: Lung mass. TECHNIQUE AND FINDINGS: Patient was placed on the table in a prone position. Conscious sedation was performed with 1 mg of Versed and 75 mcg of fentanyl under constant nursing supervision. A preliminary CT scan was obtained for localization purposes. The patient's back was prepped and draped utilizing maximal sterile barrier technique. Local anesthesia was obtained with 2% lidocaine. A 20-gauge Temno needle was advanced into the lesion under CT guidance. Three core biopsy specimens were obtained. Following the procedure the needle was removed and adequate hemostasis was obtained. Patient tolerated the procedure well and left the department in stable condition. IMPRESSION: Successful CT-guided right lung biopsy, as described. Dictated by: Dictated on workstation # [id number]
--- NOTE | 2018-12-04 19:21 | Diagnostic Imaging Report ---
INDICATION: Right lung mass. Post biopsy. 12/04/2018 at 12:32 p.m. EXAMINATION: Expiratory portable upright radiograph is performed. FINDINGS: Right superior medial lung mass is present. There is no pneumothorax or pleural effusion. Cardiac silhouette size is normal. IMPRESSION: 1. Post biopsy radiograph is negative for pneumothorax. Dictated by: Dictated on workstation # [id number]
== END 2018-12-04 13:42 | disposition home or self-care (01) ==
LOC: SDC 08:56
PROVIDERS: ATTEND Internal Medicine Critical Care Medicine
DX: J44.9 Chronic obstructive pulmonary disease, unspecified (principal); F17.200 Nicotine dependence, unspecified, uncomplicated; R91.8 Other nonspecific abnormal finding of lung field
CPT/HCPCS: 36415; 36430; 71045; 77012; 85027; 85610; 85730; 99156

== ENCOUNTER 2019-04-20 07:10 | Emergency (ER) | payer MEDICARE, OTHER ==
[~2019-04-20] VITALS: Ht 173 cm; Wt 68.0 kg
[2019-04-20] MEDS ORDERED: MIDAZOLAM 5 MG/5 ML (VERSED) VIAL IJ ONE (07:12)
[2019-04-20] MEDS ORDERED: ROCURONIUM 10 MG/ML 5 ML SYRINGE IV ONE ×2 (07:12→09:30)
[2019-04-20] MEDS ORDERED: NS IV 1000 ML 1,000 ML IV PRN (07:20)
[2019-04-20] MEDS ORDERED: methylPREDNISolone 125 MG (Solu-MEDROL) VIAL IVP ONE (07:30)
[2019-04-20] MEDS ORDERED: cefTRIAXone FOR IV USE 1,000 MG in WATER (STERILE) FOR INJECTION 10 ML IV ONE (07:30)
[2019-04-20] MEDS ORDERED: DEXAMETHASONE 4 MG/ML SDV (DECADRON) IH ONE (07:30)
[2019-04-20] MEDS ORDERED: AZITHROMYCIN INJECTION 500 MG in NS (IVPB) 250 ML IV ONE (07:30)
[2019-04-20] MEDS ORDERED: RT-ALBUTEROL/IPRATROPIUM 3 ML (DUONEB) VIAL INH ONE (07:30)
[2019-04-20] MEDS ORDERED: NOREPINEPHRINE 4 MG/4 ML (LEVOPHED) AMP IV ONE (07:31)
[2019-04-20] MEDS ORDERED: NS (IVPB) 250 ML ONE (07:32)
[2019-04-20 07:38] LABS: BASOPHILS # (AUTO) 0.1 10^3/uL (0.0-0.1); BASOPHILS % (AUTO) 1 % (0-10); EOSINOPHILS % (AUTO) 0 % (0-10); HEMATOCRIT 42 % (40-54); HEMOGLOBIN 12.8 G/DL (13.3-17.7); LYMPHOCYTES # (AUTO) 0.8 X 10^3 (1.0-4.0); LYMPHOCYTES % (AUTO) 7 % (12-44); MEAN CORPUSCULAR HEMOGLOBIN 30 PG (25-34); MEAN CORPUSCULAR HGB CONC 31 G/DL (32-36); MEAN CORPUSCULAR VOLUME 99 FL (80-99); MEAN PLATELET VOLUME 10.2 FL (7.4-10.4); MONOCYTES # (AUTO) 0.9 X 10^3 (0.0-1.0); MONOCYTES % (AUTO) 8 % (0-12); NEUTROPHILS # (AUTO) 9.4 X 10^3 (1.8-7.8); NEUTROPHILS % (AUTO) 84 % (42-75); PLATELET COUNT 229 10^3/uL (130-400); RED CELL DISTRIBUTION WIDTH 13.7 % (10.0-14.5); WHITE BLOOD COUNT 11.2 10^3/uL (4.3-11.0)
--- NOTE | 2019-04-20 07:41 | NUR ---
SUPA WHATLEY APPLIED TO PT AT [id number].
[2019-04-20 07:43] LABS: BILIRUBIN,URINE NEGATIVE (NEGATIVE); CLARITY,URINE CLEAR; COLOR,URINE YELLOW; GLUCOSE, URINE (UA) NEGATIVE (NEGATIVE); KETONES,URINE NEGATIVE (NEGATIVE); LEUKOCYTE ESTERASE ,URINE NEGATIVE (NEGATIVE); NITRITE,URINE NEGATIVE (NEGATIVE); PH,URINE 5.5 (5-9); PROTEIN,URINE 1+ (NEGATIVE)
[2019-04-20] MEDS ORDERED: NOREPINEPHRINE 4 MG in NS (IVPB) 250 ML IV SCH (07:45)
--- NOTE | 2019-04-20 07:45 | ED General ---
General Chief Complaint: Respiratory Problems Stated Complaint: UNRESPONSIVE Source of Information: EMS, Family (FAMILY GIVES SOME CONFLICTING INFORMATION) Exam Limitations: Other (PT IS UNRESPONSIVE) History of Present Illness Date Seen by Provider: Apr 20, 2019 Time Seen by Provider: 07:09 Initial Comments PT ARRIVES VIA EMS FROM HOME CALLED EMS THIS AM AFTER FINDING PT UNRESPONSIVE WITH AGONAL BREATHING, AND LOW O2 SAT PT HAS COPD AND NORMALLY WEARS O2 AT 2L/NC-- INCREASED IT TO 5L/NC PRIOR TO EMS ARRIVAL ON EMS ARRIVAL AT THE SCENE, PT WAS OBTUNDED, INCONTINENT OF URINE, WITH AGONAL BREATHING AT 8 BREATHS / MINUTE, AND O2 SAT 68% ON 5L/NC EMS GAVE 2 MG NARCAN, WITHOUT IMPROVEMENT THEY THEN GAVE PT VERSED 5 MG, SUCCINYLCHOLINE 160 MG AND INTUBATED PT, WITH O2 SATS THEN UP TO 100% PT IS A VERY HEAVY SMOKER, AND IN ADDITION TO COPD, HAS A RIGHT LUNG MASS PT SEES DR. JOHNSON, AND GOES TO [facility] [place] FAMILY REPORTS THAT PT FREQUENTLY ABUSES HIS PAIN MEDICATION ( HYDROCODONE) AND XANAX, AND FREQUENTLY BECOMES OBTUNDED WITH DECREASED BREATHING, AND HAS HAD NARCAN AT THE BEDSIDE STATES THAT THEY WILL NO LONGER GIVE HIM HYDROCODONE, AND THERE ARE NO BOTTLES IN THE HOUSE. PT STILL HAS RX FOR XANAX, BUT HIS MEDICATIONS ARE NOT MONITORED BY ANYONE--FAMILY AND ALL REPORT THAT HE JUST TAKES HIS MEDICATION ON HIS OWN, BUT STATES "HE FORGETS IF HE HAS TAKEN THEM OR NOT" FAMILY REPORT THAT HE FELL WHILE HE WAS AT THE [facility] FOR APPOINTMENT A COUPLE OF WEEKS AGO, AND THEY REPORT HE BROKE SEVERAL LEFT RIBS AND LEFT CLAVICLE, BUT WAS NOT ADMITTED TO THE HOSPITAL ( LATER STATE THAT THIS WAS ABOUT 2 MONTHS AGO--IN FEBRUARY--NOT 2 WEEKS AGO) WAS GIVEN RX FOR MELOXICAM AT THAT TIME FAMILY STATES THAT HE ALSO FELL YESTERDAY AROUND 1600--IS UNCLEAR IF HE WAS INJURED. THIS WAS NOT WITNESSED, AND OTHER FAMILY MEMBERS HAD LEFT THE HOUSE FOR A SHORT PERIOD OF TIME. PT REPORTEDLY HAD BEEN ABLE TO GET HIMSELF BACK INTO THE BED, BEFORE FAMILY MEMBERS GOT BACK HOME. SOME FAMILY REPORTS THAT HE "WASN'T TALKING RIGHT" WHEN THEY TALKED TO HIM ON THE PHONE AROUND 1900 LAST NIGHT STATES HE ATE SUPPER AND THE LAST TIME SHE TALKED TO HIM WAS AROUND 2100, AND "WAS FINE" PCP: [facility] GL[facility] TINTER: DR. JOHNSON Allergies and Home Medications Allergies Coded Allergies: lidocaine (Verified Allergy, Severe, 04/16/16) procaine (Verified Allergy, Severe, 04/16/16) Home Medications Albuterol Sulfate 1 Puff Puff, 2 PUFF IH QID PRN for SHORTNESS OF BREATH, (Reported) 1 PUFF = 90 MCG Albuterol/Ipratropium 4 Gm Aero, 1 PUFF IH QID, (Reported) Alprazolam 1 Mg Tablet, 1 MG PO TID PRN for ANXIETY, (Reported) Budesonide/Formoterol Fumarate 10.2 Gm Hfa.aer.ad, 2 PUFF IH BID, (Reported) Hydrocodone Bit/Acetaminophen 1 Tab Tab, 1 TAB PO Q4-6HR PRN for PAIN-MODERATE Prescribed by: GLO BYRD on 02/26/18 1234 Patient Home Medication List Home Medication List Reviewed: Yes Review of Systems Review of Systems Constitutional: other (PT IS OBTUNDED) Skin: other (PRIOR TO TRANSFER, FAMILY REPORT THAT PT HAS A BEDSORE ON HIS B UTTOCKS/SACRUM/COCCYX AREA, THAT THEY HAVE NOT SEEN ANYONE ABOUT. ) Past Qhqoptj-Wqubua-Ejntzp Hx Patient Social History Alcohol Beverage of Choice: Vodka Smoking Status: Heavy Tobacco Smoker Type Used: Cigarettes Recent Foreign Travel: No Contact w/Someone Who Travel: No Recent Hopitalizations: No Immunizations Up To Date Tetanus Booster (TDap): Unknown Date of Pneumonia Vaccine: Feb 14, 2015 Date of Influenza Vaccine: Mar 18, 2016 Seasonal Allergies Seasonal Allergies: Yes Past Medical History Surgeries: Yes (SKIN LESIONS REMOVED; BRONCHOSCOPY WITH BIOPSIES 02/24/18) Respiratory: Yes (RIGHT LUNG MASS--BRONCHOSCOPY 02/24/18--NO MALIGNANCY FOUND--ALSO HAD RIGHT RIB FRACTURES AT THAT TIME; . LEFT RIB FRACTUES 03/2019) Asthma, COPD Currently Using CPAP: No Currently Using BIPAP: No Cardiac: No Neurological: Yes (POOR MEMORY, PER FAMILY) Reproductive Disorders: No Sexually Transmitted Disease: No HIV/AIDS: No Genitourinary: Yes Benign Prostatic Hyperpl Gastrointestinal: Yes Chronic Constipation Musculoskeletal: Yes (LEFT CLAVICLE FRACTURE, LEFT RIB FRACTURES [facility];RIGHT RIB FRACTURES NOTED 02/2018; FREQUENT FALLS CHRONIC PAIN--HAS ABUSED HYDROCODONE IN PAST, AND PCP WILL NO LONGER PRESCRIBE) Fractures Endocrine: No HEENT: Yes Loss of Vision: Bilateral Hearing Impairment: Hard of Hearing Cancer: Yes Skin Did You Recieve Any Treatments: Yes What Type of Treatment Did You: Surgical Intervention Psychosocial: Yes (ABUSES PAIN MEDICATION AND XANAX) Sleep Difficulties, Anxiety, PTSD Integumentary: Yes (SKIN CANCER) Blood Disorders: No Adverse Reaction/Blood Tranf: No (N/A) Family Medical History WEIGHT LOSS OF 50 LBS REPORTED 02/2018 Physical Exam Vital Signs Vital Signs - First Documented 04/20/19 04/20/19 07:10 09:02 Temp 32.2 Pulse 82 Resp 12 B/P (MAP) 82/69 (73) Pulse Ox 100 O2 Delivery Ambu Bag FiO2 50 Capillary Refill : Height, Weight, BMI Height: 5'7.00" Weight: 114lbs. 8.0oz. 51.419503ku; 17.5 BMI Method: General Appearance: Cachetic, Other (REEKS OF OLD URINE/INCONTINENT OF URINE. REEKS OF CIGARETTES. PT IS OBTUNDED) HEENT: Other (PUPILS 2-3 MM / EQUAL BUT NON-REACTIVE) Neck: JVD Respiratory: Other (PT IS BEING BAGGED ON ARRIVAL, BREATH SOUNDS EQUAL WITH BAGGING, NO SPONTANEOUS RESPIRATORY EFFORT) Cardiovascular: Regular Rate, Rhythm (BUT HEART SOUNDS ARE VERY FAINT), Other (PERIPHERAL PULSES NOT PALPABLE ON ARRIVAL--BP IN 60'S SYSTOLIC ON ARRIVAL. ) Gastrointestinal: Soft Extremity: No Pedal Edema, Slow Capillary Refill Neurologic/Psychiatric: Other (OBTUNDED, INTUBATED) Skin: Cool (RECTAL TEMP 31 DEGREES CELSIUS ON ARRIVAL. ), Pallor (SLIGHTLY DUSKY ON ARRIVAL. ), Other (FAMILY REPORTS THAT PT HAS A BEDSORE ON SACRUM/COCCYX/BUTTOCKS, BUT NOT WELL VISUALIZED AT THIS TIME, AND DO NOT WANT TO RISK DISPLACEMENT OF ET TUBE AT THIS TIME BY MOVING PT ) Focused Exam Sepsis Stage: Septic Shock Possible Source: Unknown Lactate Level 04/20/19 07:20: Lactic Acid Level 2.74*H 04/20/19 09:10: Lactic Acid Level 2.07*H Time of Focused Exam: 08:00 Respiratory: Other (PT ON VENTILATOR, BUT LUNGS CLEAR AND EQUAL WITH VENTILATOR) Cardiovascular: Regular Rate, Rhythm Skin: warm/dry, cool, pallor Lactic Acid Level Within 3hrs of presentation: Admin fluids, Admin 30ml/kg IBW due to BMI>30, Admin ABX, Blood cultures prior to ABX's, Focus exam, Lactate level, Vasopressin therapy Progress/Results/Core Measures Suspected Sepsis SIRS Temperature: Pulse: Respiratory Rate: Laboratory Tests 04/20/19 07:20: White Blood Count 11.2H Blood Pressure / Mean: 04/20/19 07:20: Lactic Acid Level 2.74*H 04/20/19 09:10: Lactic Acid Level 2.07*H Laboratory Tests 04/20/19 07:20: Creatinine 0.61, INR Comment 0.8, Platelet Count 229, Total Bilirubin 0.2 Results/Orders Lab Results Laboratory Tests Test 04/20/19 07:20 04/20/19 07:35 04/20/19 07:57 04/20/19 09:10 Range/Units White Blood Count 11.2 H 4.3-11.0 10^3/uL Red Blood Count 4.23 L 4.35-5.85 10^6/uL Hemoglobin 12.8 L 13.3-17.7 G/DL Hematocrit 42 40-54 % Mean Corpuscular Volume 99 80-99 FL Mean Corpuscular Hemoglobin 30 25-34 PG Mean Corpuscular Hemoglobin Concent 31 L 32-36 G/DL Red Cell Distribution Width 13.7 10.0-14.5 % Platelet Count 229 130-400 10^3/uL Mean Platelet Volume 10.2 7.4-10.4 FL Neutrophils (%) (Auto) 84 H 42-75 % Lymphocytes (%) (Auto) 7 L 12-44 % Monocytes (%) (Auto) 8 0-12 % Eosinophils (%) (Auto) 0 0-10 % Basophils (%) (Auto) 1 0-10 % Neutrophils # (Auto) 9.4 H 1.8-7.8 X 10^3 Lymphocytes # (Auto) 0.8 L 1.0-4.0 X 10^3 Monocytes # (Auto) 0.9 0.0-1.0 X 10^3 Eosinophils # (Auto) 0.0 0.0-0.3 10^3/uL Basophils # (Auto) 0.1 0.0-0.1 10^3/uL Neutrophils % (Manual) 90 % Lymphocytes % (Manual) 3 % Monocytes % (Manual) 5 % Band Neutrophils 2 % Blood Morphology Comment NORMAL Prothrombin Time 11.5 L 12.2-14.7 SEC INR Comment 0.8 0.8-1.4 Activated Partial Thromboplast Time 26 24-35 SEC Sodium Level 136 135-145 MMOL/L Potassium Level 7.1 #*H 4.7 3.6-5.0 MMOL/L Chloride Level 94 L 98-107 MMOL/L Carbon Dioxide Level 31 21-32 MMOL/L Anion Gap 9 5-14 MMOL/L Blood Urea Nitrogen 15 7-18 MG/DL Creatinine 0.61 0.60-1.30 MG/DL Estimat Glomerular Filtration Rate > 60 BUN/Creatinine Ratio 25 Glucose Level 129 H 70-105 MG/DL Lactic Acid Level 2.74 *H 2.07 *H 0.50-2.00 MMOL/L Calcium Level 8.9 8.5-10.1 MG/DL Corrected Calcium 9.3 8.5-10.1 MG/DL Magnesium Level 1.8 1.6-2.4 MG/DL Total Bilirubin 0.2 0.1-1.0 MG/DL Aspartate Amino Transf (AST/SGOT) 37 H 5-34 U/L Alanine Aminotransferase (ALT/SGPT) 20 0-55 U/L Alkaline Phosphatase 210 H 40-136 U/L Ammonia 51 H 19 11-32 UMOL/L Total Creatine Kinase 40 30-200 U/L Creatine Kinase MB 5.7 <6.6 NG/ML Myoglobin 47.0 10.0-92.0 NG/ML Troponin I < 0.028 <0.028 NG/ML Total Protein 7.1 6.4-8.2 GM/DL Albumin 3.5 3.2-4.5 GM/DL Lipase 7 L 8-78 U/L Salicylates Level < 5.0 L 5.0-20.0 MG/DL Acetaminophen Level < 10 L 10-30 UG/ML Serum Alcohol < 10 <10 MG/DL Urine Color YELLOW Urine Clarity CLEAR Urine pH 5.5 5-9 Urine Specific [place] >=1.030 1.016-1.022 Urine Protein 1+ H NEGATIVE Urine Glucose (UA) NEGATIVE NEGATIVE Urine Ketones NEGATIVE NEGATIVE Urine Nitrite NEGATIVE NEGATIVE Urine Bilirubin NEGATIVE NEGATIVE Urine Urobilinogen 0.2 < = 1.0 MG/DL Urine Leukocyte Esterase NEGATIVE NEGATIVE Urine RBC (Auto) NEGATIVE NEGATIVE Urine RBC NONE /HPF Urine WBC NONE /HPF Urine Squamous Epithelial Cells 0-2 /HPF Urine Crystals NONE /LPF Urine Bacteria TRACE /HPF Urine Casts PRESENT /LPF Urine Hyaline Casts 2-5 H /LPF Urine Mucus SMALL H /LPF Urine Culture Indicated CULTURE PENDING Urine Opiates Screen NEGATIVE NEGATIVE Urine Oxycodone Screen NEGATIVE NEGATIVE Urine Methadone Screen NEGATIVE NEGATIVE Urine Propoxyphene Screen NEGATIVE NEGATIVE Urine Barbiturates Screen NEGATIVE NEGATIVE Ur Tricyclic Antidepressants Screen NEGATIVE NEGATIVE Urine Phencyclidine Screen NEGATIVE NEGATIVE Urine Amphetamines Screen NEGATIVE NEGATIVE Urine Methamphetamines Screen NEGATIVE NEGATIVE Urine Benzodiazepines Screen POSITIVE H NEGATIVE Urine Cocaine Screen NEGATIVE NEGATIVE Urine Cannabinoids Screen NEGATIVE NEGATIVE Blood Gas Puncture Site R RAD Blood Gas Patient Temperature 32.2 Arterial Blood pH 7.36 L 7.37-7.43 Arterial Blood Partial Pressure CO2 51 H 35-45 MMHG Arterial Blood Partial Pressure O2 454 H 79-93 MMHG Arterial Blood HCO3 30 H 23-27 MMOL/L Arterial Blood Total CO2 32.1 H 21.0-31.0 MMOL/L Arterial Blood Oxygen Saturation 100 94-100 % Arterial Blood Base Excess 4.0 H -2.5-2.5 MMOL/L Raúl Test YES-POS Blood Gas Ventilator Setting YES Blood Gas Inspired Oxygen 80 B-Type Natriuretic Peptide 175.9 H <100.0 PG/ML Test 04/20/19 09:45 Range/Units Blood Gas Puncture Site LR Blood Gas Patient Temperature 33.5 Arterial Blood pH 7.36 L 7.37-7.43 Arterial Blood Partial Pressure CO2 52 H 35-45 MMHG Arterial Blood Partial Pressure O2 180 H 79-93 MMHG Arterial Blood HCO3 30 H 23-27 MMOL/L Arterial Blood Total CO2 32.3 H 21.0-31.0 MMOL/L Arterial Blood Oxygen Saturation 99 94-100 % Arterial Blood Base Excess 4.6 H -2.5-2.5 MMOL/L Raúl Test YES-POS Blood Gas Ventilator Setting YES Blood Gas Inspired Oxygen 40% Micro Results Microbiology 04/20/19 Gram Stain - Final, Resulted 04/20/19 Sputum Culture, Resulted Pending 04/20/19 Influenza Types A,B Antigen (REBECCA) - Final, Complete My Orders Orders - AIDAN SMITH DO Accucheck Stat ONCE (04/20/19 07:20) Ed Iv/Invasive Line Start (04/20/19 07:20) Ekg Tracing (04/20/19 07:20) Catheter(Urinary) Insert & Ass 03,15 (04/20/19 07:20) Ng Tube Insert & Assessment (04/20/19 07:20) O2 (04/20/19 07:20) Monitor-Rhythm Ecg Trace Only (04/20/19:20) Chest 1 View, Ap/Pa Only (04/20/19:20) Acetaminophen (04/20/19 07:20) Alcohol (04/20/19 07:20) Ammonia (04/20/19 07:20) Arterial Blood Gas (04/20/19:20) BNP (04/20/19:20) Cbc With Automated Diff (04/20/19:20) Comprehensive Metabolic Panel (04/20/19:20) Creatine Kinase (04/20/19:20) Creatine Kinase Mb (04/20/19 07:20) Drug Screen Stat (Urine) (04/20/19 07:20) Lactic Acid Analyzer (04/20/19 07:20) Lipase (04/20/19 07:20) Magnesium (04/20/19 07:20) Protime With Inr (04/20/19:20) Partial Thromboplastin Time (04/20/19 07:20) Salicylate (04/20/19 07:20) Ua Culture If Indicated (04/20/19 07:20) Blood Culture (04/20/19 07:20) Influenza A And B Antigens (04/20/19:20) Myoglobin Serum (04/20/19 07:20) Troponin I (04/20/19 07:20) Ed Iv/Invasive Line Start (04/20/19 07:20) Ns Iv 1000 Ml (Sodium Chloride 0.9%) (04/20/19 07:20) Sputum Culture (04/20/19 07:20) Urine Culture (04/20/19 07:20) Ed Iv/Invasive Line Start (04/20/19 07:20) Ed Iv/Invasive Line Start (04/20/19 07:20) Vital Signs Adult Sepsis Patie Q15M (04/20/19 07:20) O2 (04/20/19 07:20) Remove Rings In Anticipation O (04/20/19 07:20) Ceftriaxone For Iv Use (Rocephin For I (04/20/19 07:30) Azithromycin Injection (Zithromax Inject (04/20/19 07:30) Methylprednisolone Sod Succ (Solu-Medrol (04/20/19 07:30) Albuterol/Ipra Inhalation Soln (Duoneb I (04/20/19 07:30) Dexamethasone Injection (Decadron Inject (04/20/19 07:30) Svn Small Volume Nebulizer (04/20/19 07:27) Rt Request For Service (04/20/19 07:27) Norepinephrine (Levophed) (04/20/19 07:45) Norepinephrine (Levophed) (04/20/19 07:31) Ns (Ivpb) (Sodium Chloride 0.9%) (04/20/19 07:32) Manual Differential (04/20/19 07:20) Ct Head/Cervical Spine Wo (04/20/19 07:43) Pelvis (04/20/19 07:43) Arterial Blood Gas (04/20/19 07:54) Ed Iv/Invasive Line Start (04/20/19 07:59) Ns Iv 1000 Ml (Sodium Chloride 0.9%) (04/20/19 07:59) Ct Chest/Abdomen/Pelvis W (04/20/19 08:08) Ct Thoracic/Lumbar Spine Wo (04/20/19 08:08) Ammonia (04/20/19 08:16) Potassium (04/20/19 08:16) Ammonia (04/20/19 07:20) Iohexol Injection (Omnipaque 350 Mg/Ml 1 (04/20/19 08:45) Received Contrast (Hold Metformin- Contr (04/20/19 08:45) Ns (Ivpb) (Sodium Chloride 0.9% Ivpb Bag (04/20/19 08:45) Arterial Blood Gas (04/20/19 09:15) Rocuronium 5 Ml Syringe (Rocuronium 5 Ml (04/20/19 09:30) Chest 1 View, Ap/Pa Only (04/20/19 09:41) Arterial Blood Draw (04/20/19 ) Ed Iv/Invasive Line Start (04/20/19 12:33) Ns Iv 1000 Ml (Sodium Chloride 0.9%) (04/20/19 12:33) Midazolam Injection (Versed Injection) (04/20/19 07:12) Rocuronium 5 Ml Syringe (Rocuronium 5 Ml (04/20/19 07:12) Medications Given in ED Vital Signs/I&O Capillary Refill : Progress Note : Progress Note INITIAL RECTAL TEMP ON ARRIVAL --31 DEGREES CELSIUS -----PT GIVEN WARMED IV FLUIDS--FLUID VOLUME PER SEPSIS PROTOCOL SUPA WHATLEY PLACED ON PT PT STARTED ON LEVOPHED DUE TO SEVERE HYPOTENSION PT SUCTIONED BY RT AND GIVEN NEB TREATMENT, AND PLACED ON VENT ON ARRIVAL 717--PT HAS SOME SPONTANEOUS MOVEMENT, PULLS AWAY WITH RECTAL PROBE, AND IS MOVING FROM SIDE TO SIDE, AND IS BLINKING EYES. PT GIVEN ADDITIONAL SEDATION AT THAT POINT. VITALS STABLE AT TIME OF TRANSFER: TEMP UP TO 35.4 C = 95.8 F PULSE 73 RESPIRATIONS 16 ON VENT, WITH O2 SAT 99-100% ON VENT BP 112/68 ECG Initial ECG Impression Date: Apr 20, 2019 Initial ECG Impression Time: 07:38 Initial ECG Rate: 96 Initial ECG Rhythm: Normal Sinus (MUCH ARTIFACT --) Diagnostic Imaging Comments CXR--COPD, INCREASED IN SIZE OF RUL NODULE, ET TUBE AND ENTERIC TUBE IN PLACE, CHRONIC INTERSTITIAL LUNG DISEASE--PER RADIOLOGIST REPORT AT 0907--I ALSO NOTE LEFT RIB FRACTURES, WITH QUESTIONABLE LEFT PNEUMOTHORAX CT HEAD/CERVICAL SPINE--NO ACUTE PROCESS, SMALL VESSEL CHRONIC ISCHEMIC CHANGES, DEGENERATIVE DISC DISEASE, ESPECIALLY C5-C5-C6. LEFT APICAL PNEUMOTHORAX--PER RADIOLOGIST REPORT AT 0907 PELVIS XRAY--NO ACUTE PROCESS, PER RADIOLOGIST REPORT AT 0909 CT THORACIC/LUMBAR SPINE--ACUTE/SUB ACUTE, MULTIPLE LEFT POSTERIOR RIB FRACTURES, WITH RIB #7 WITH 2 FRACTURES, SMALL LEFT HYDRO-PNEUMO THORAX, NO EVIDENCE OF TENSION PNEUMOTHORAX--PER TEACHERS' ASSISTANT VIA PHONE AT 0917; ADDITIONAL TYPED REPORT RECEIVED AT 0919--ADDITIONAL CHRONIC DEGENERATIVE CHANGES OF SPINE CT CHEST/ABDOMEN/PELVIS--SMALL LEFT PNEUMOTHORAX, ACUTE LEFT 5TH THROUGH 8TH RIB FRACTURES, WITH UNCHANGED LEFT 9TH THROUGH 11TH RIB FRACTURES; SMALL LEFT PLEURAL EFFUSION; UNCHANGED EMPHYSEMATOUS CHANGES; UNCHANGED 3.2. X 3.5 CM SPICULATED MASS IN RUL; GASTRIC TUBE IS COILED UPON ITSELF IN DISTAL ESOPHAGUS; NO ACUTE INTRA-ABDOMINAL ABNORMALITY; EXTENSIVE ASVD--PER RADIOLOGIST REPORT AT 0919 CXR--TIP OF ENTERIC TUBE POINTING TOWARDS GASTRIC ANTRUM, BUT TIP NOT COMPLETELY VISUALIZED. OTHERWISE UNCHANGED--PER RADIOLOGIST REPORT AT 1055 Reviewed: Reviewed by Me Critical Care Note Critical Care Start Time: 07:09 Stop Time: 10:55 Progress SEE NURSING NOTES FOR DETAILS Departure Communication (Admissions) 09--SPOKE WITH DR. STEWART, GENERAL SURGEON [employer] / ALREADY HERE IN ER, [place] DING LEFT PNEUMOTHORAX. HE ADVISES THAT NO CHEST TUBE IS NEEDED AT THIS TIME. THIS FACILITY IS ON FULL DIVERSION AT THIS TIME 09--CALLED ISABELLA CHANDLER, FAMILY PREFERENCE, MESSAGE LEFT ON MACHINE 0937--SPOKE WITH ISABELLA CHANDLER 0939--SPOKE WITH DR. HARRIS, ER PHYSICIAN, ACCEPTS PT FOR TRANSFER Impression Primary Impression: Acute on chronic respiratory failure with hypoxia and hypercapnia Additional Impressions: MULTIPLE LEFT RIB FRACTURES Pneumothorax on left POSSIBLE SEPTIC SHOCK Mass of right lung Very heavy cigarette smoker SEVERE HYPOTHERMIA Disposition: 02 XFER [facility]-TRM HOSP Condition: Critical Transfer Transfer Reason: Diversion [facility] Method of Transfer: EMS Departure-Patient Inst. Referrals: NO,LOCAL PHYSICIAN (PCP) Primary Care Physician JOSE M PRADHAN (Family) Primary Care Physician AIDAN SMITH DO Apr 20, 2019 07:45 POS
[2019-04-20 07:54] LABS: INR 0.8 (0.8-1.4); PROTHROMBIN TIME PATIENT 11.5 SEC (12.2-14.7)
[2019-04-20 07:57] LABS: BACTERIA,URINE TRACE /HPF; SQUAMOUS EPITHELIAL CELL,UR 0-2 /HPF
[2019-04-20 07:59] LABS: ALANINE AMINOTRANSFERASE 20 U/L (0-55); ALBUMIN 3.5 GM/DL (3.2-4.5); ALKALINE PHOSPHATASE 210 U/L (40-136); BILIRUBIN,TOTAL 0.2 MG/DL (0.1-1.0); BUN/CREATININE RATIO 25; CALCIUM 8.9 MG/DL (8.5-10.1); CHLORIDE 94 MMOL/L (98-107); CREATINE KINASE 40 U/L (30-200); CREATININE SERUM 0.61 MG/DL (0.60-1.30); GFR ESTIMATED > 60; GLUCOSE 129 MG/DL (70-105); LIPASE 7 U/L (8-78); MAGNESIUM 1.8 MG/DL (1.6-2.4); SALICYLATE < 5.0 MG/DL (5.0-20.0); SODIUM 136 MMOL/L (135-145); TOTAL PROTEIN 7.1 GM/DL (6.4-8.2)
[2019-04-20] MEDS ORDERED: NS IV 1000 ML 1,000 ML IV SCH ×2 (07:59→12:33)
[2019-04-20 08:03] LABS: AMPHETAMINE SCREEN, URINE NEGATIVE (NEGATIVE); BARBITURATE SCREEN URINE NEGATIVE (NEGATIVE); BENZODIAZEPINES SCREEN URINE POSITIVE (NEGATIVE); CANNABINOID SCREEN, URINE NEGATIVE (NEGATIVE); COCAINE SCREEN URINE NEGATIVE (NEGATIVE); METHADONE STAT NEGATIVE (NEGATIVE); METHAMPHETAMINE SCREEN URINE S NEGATIVE (NEGATIVE); OPIATE SCREEN URINE NEGATIVE (NEGATIVE); OXYCODONE STAT NEGATIVE (NEGATIVE); PROPOXYPHENE STAT NEGATIVE (NEGATIVE); TRICYCLIC ANTIDEPRESSANTS SCRE NEGATIVE (NEGATIVE)
[2019-04-20 08:03] LABS: ABG OXYGEN SATURATION 100 % (94-100); ABG PCO2 51 MMHG (35-45); ABG PH 7.36 (7.37-7.43); ABG PO2 454 MMHG (79-93); ABG TCO2 32.1 MMOL/L (21.0-31.0)
[2019-04-20 08:06] LABS: CREATINE KINASE MB 5.7 NG/ML (<6.6)
--- NOTE | 2019-04-20 08:06 | Diagnostic Imaging Report ---
EXAMINATION: Pelvis 1 or 2 views HISTORY: Unresponsive COMPARISON: None available. FINDINGS: Catheter projects over the lower pelvis. There is large volume of stool in the rectum. Pelvic alignment is normal. No pelvic fracture is seen. Left common femoral artery calcifications are noted. Hip joint spaces are normal. IMPRESSION: 1. No fracture in the pelvis. Dictated by: Dictated on workstation # [id number]
--- NOTE | 2019-04-20 08:07 | Diagnostic Imaging Report ---
INDICATION: Unresponsive. COMPARISON STUDY: Chest from December 04. FINDINGS: A portable supine view of the chest demonstrates COPD changes with bibasilar emphysema. Chronic interstitial lung disease is present greatest in the upper lobes. There is a right upper lobe spiculated nodule. An endotracheal tube and enteric tube are in place. Right lung base is underpenetrated. Loculated pneumothorax cannot be excluded. IMPRESSION: 1. There is increase in size of spiculated nodule in the right upper lobe. 2. COPD. 3. The right lung base overpenetrated. Dictated by: Dictated on workstation # [id number]
[2019-04-20 08:08] LABS: ALLENS TEST YES-POS
[2019-04-20 08:09] LABS: INSPIRED O2 80; PATIENT TEMP 32.2; VENTILATOR YES
[2019-04-20 08:20] LABS: ACETAMINOPHEN < 10 UG/ML (10-30); AMMONIA 51 UMOL/L (11-32); CARBON DIOXIDE 31 MMOL/L (21-32)
[2019-04-20 08:27] LABS: BAND NEUTROPHILS 2 %; LYMPHOCYTES % (MANUAL) 3 %; MONOCYTES % (MANUAL) 5 %; NEUTROPHILS % (MANUAL) 90 %; POTASSIUM 7.1 MMOL/L (3.6-5.0); RBC MORPH NORMAL
--- NOTE | 2019-04-20 08:40 | NUR ---
B/P'S DID NOT TAKE WHILE PT WAS IN CT DUE TO POSITION OF PT'S ARM.
[2019-04-20] MEDS ORDERED: IOHEXOL 350 MG/ML 100 ML (OMNIPAQUE 350) VIAL IV ONE (08:45)
[2019-04-20] MEDS ORDERED: NS 100 ML (IVPB) BAG IV ONE (08:45)
[2019-04-20] MEDS ORDERED: HOLD METFORMIN - RECEIVED CONTRAST 20 ML VIAL IV SCH (08:45)
--- NOTE | 2019-04-20 08:53 | Diagnostic Imaging Report ---
PROCEDURE: CT head and CT cervical spine without contrast. TECHNIQUE: Multiple contiguous axial images were obtained through the brain and cervical spine without the use of intravenous contrast. Sagittal and coronal reformations through the cervical spine were then performed. Auto Exposure Controls were utilized during the CT exam to meet ALARA standards for radiation dose reduction. INDICATION: Unresponsive. COMPARISON: 02/24/2018. FINDINGS: CT HEAD: There is moderate image degradation secondary to motion artifact. The ventricles and cortical sulci are diffusely prominent, compatible with age-related volume loss. There are confluent areas of abnormal, low attenuation in the periventricular white matter. This is consistent with chronic small vessel ischemic changes. There is no midline shift or mass effect. No acute intra-axial hemorrhage is seen. There are no abnormal areas of increased or decreased density to suggest acute hemorrhage or edema. No extra-axial masses or collections are present. The bony calvarium is intact. The visualized paranasal sinuses are unremarkable. The mastoid air cells are clear. CT CERVICAL SPINE: Static alignment of the cervical spine is maintained. There is no significant nelson or retrolisthesis. There is no evidence of jumped facets. The vertebral body heights are maintained. There is no evidence of an acute fracture. No bony fragments are seen within the spinal canal. There are moderate multilevel degenerative changes consisting of intervertebral disc height loss with anterior and posterior disc/osteophyte complex formations. These changes appear greatest at the C4-C5 and C5-C6 levels. The pre and paravertebral soft tissue structures are unremarkable. Note is made of calcified carotid atherosclerosis. The included portions of the lung apices show background emphysematous disease and a left apical pneumothorax. IMPRESSION: 1. No acute intracranial abnormality. No CT evidence of mass, acute infarct, or intracranial hemorrhage. 2. Chronic small vessel ischemic changes in the deep white matter. 3. No acute fracture or dislocation of the cervical spine. 4. Moderate multilevel degenerative changes of the cervical spine, greatest at C4-C5 and C5-C6. 5. Partially visualized left apical pneumothorax. Dictated by: Dictated on workstation # [id number]
--- NOTE | 2019-04-20 08:55 | NUR ---
FAMILY AT BEDSIDE WITH PASTORAL CARE.
[2019-04-20 09:02] VITALS: BP 143/77
--- NOTE | 2019-04-20 09:14 | Diagnostic Imaging Report ---
EXAMINATION: CT Chest, Abdomen and Pelvis with intravenous contrast. TECHNIQUE: Multiple contiguous axial images were obtained through the chest, abdomen and pelvis after the uneventful administration of intravenous contrast. All CT scans use one or more of the following dose optimizing techniques: automated exposure control, MA and/or KvP adjustment based on a patient size and exam type, or iterative reconstruction. HISTORY: Fall COMPARISON: 10/07/2018 FINDINGS: There is a small left pneumothorax. The lungs are emphysematous and overinflated. There are acute left 5th through 8th rib fractures. There are unchanged left 9th through 11th rib fractures. There is an unchanged 3.2 x 3.5 cm spiculated mass in the right upper lobe. There is a small left pleural effusion. Gastric tube is coiled upon itself with the tip directed cranially in the distal esophagus. Heart size is normal. No pericardial effusion. Aorta is normal in caliber. There is no axillary or supraclavicular lymphadenopathy. There is no mediastinal lymphadenopathy. The liver is normal without focal lesion. There is no biliary ductal dilation. Gallbladder is normal. Pancreas is normal. Spleen is normal. Adrenal glands are normal. The kidneys are normal. There is no hydronephrosis. Dotson catheter is in the urinary bladder and there is associated gas in the bladder from recent instrumentation. Rectal monitor is present. There are no dilated loops of large or small bowel. No obstruction or inflammation. No free fluid or air. No abdominal or pelvic lymphadenopathy. Aorta is normal in caliber without aneurysm. There is extensive calcified atherosclerosis of the abdominal aorta and iliofemoral arteries. There are no suspicious osseus lesions. IMPRESSION: 1. Small left pneumothorax with acute left 5th through 8th rib fractures. 2. Unchanged 3.5 cm spiculated mass in the right upper lobe. 3. Small left pleural effusion. 4. Gastric tube is coiled upon itself with tip directed cranially in the distal esophagus. Dictated by: Dictated on workstation # [id number]
--- NOTE | 2019-04-20 09:17 | Diagnostic Imaging Report ---
PROCEDURE: CT thoracic and lumbar spine without contrast. TECHNIQUE: Multiple contiguous axial images were obtained through the thoracic and lumbar spine without the use of intravenous contrast. Sagittal and coronal reformations were then performed. INDICATION: Fall, pain. COMPARISON: 09/23/2016 and 10/07/2018. FINDINGS: There is very minimal apex right curvature of the thoracolumbar spine. No significant anterolisthesis or retrolisthesis. Mild superior endplate deformity of L2 is stable from the prior examination. A few scattered Schmorl's nodes are present. Otherwise, the vertebral body heights are well-maintained. 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 Acute to subacute appearing fractures are identified associated with the posterior left 7th, 8th, 10th, and 11th ribs. The posterior left 7th rib appears to have two discrete fracture planes. These left-sided rib fractures are essentially nondisplaced. No additional acute fracture. No dislocation. No destructive osseous process. Scattered facet joint degenerative changes. Low-grade disc space height loss without severe disc space height loss. At least mild central canal stenosis is present at L4-L5 and L5-S1. No severe osseous central canal or neuroforaminal stenosis. An enteric catheter is present although it is coiled within the distal esophagus with the distal tip coursing cranially within the distal esophagus. Recommend advancement and repositioning. Scattered vascular calcifications. A spiculated 3.2 x 2.6 cm right upper lobe pulmonary mass is present, slightly decreased since the prior exam. Small left-sided pneumothorax. Small left and trace right bilateral pleural effusions. Reticular groundglass opacities are again noted within the right lower lobe, increased since the prior examination. Background emphysematous changes. Endotracheal tube in place. Extensive vascular calcifications. Left renal hypodensity, incompletely evaluated on this examination. IMPRESSION: Acute to possibly subacute fracturing of multiple posterior left-sided ribs as described above including two fractures within the posterior left 7th rib. This is associated with a small left hydropneumothorax. No evidence of tension phenomenon. No acute fracturing within the thoracolumbar spine itself. Enteric catheter is coiled within the distal esophagus. Recommend advancement. Right upper lobe spiculated mass has minimally decreased in size since September 2018. Background emphysematous changes. Additional findings as above. Called and faxed to Dr. Torrez at 9:15 a.m. by cvb. Dictated by: Dictated on workstation # [id number]
[2019-04-20 09:32] LABS: POTASSIUM 4.7 MMOL/L (3.6-5.0)
[2019-04-20 09:55] LABS: ABG BASE EXCESS 4.6 MMOL/L (-2.5-2.5); ABG OXYGEN SATURATION 99 % (94-100); ABG PCO2 52 MMHG (35-45); ABG PH 7.36 (7.37-7.43); ABG PO2 180 MMHG (79-93); ABG TCO2 32.3 MMOL/L (21.0-31.0)
[2019-04-20 09:57] LABS: ALLENS TEST YES-POS; INSPIRED O2 40%; PATIENT TEMP 33.5; VENTILATOR YES
--- NOTE | 2019-04-20 09:58 | NUR ---
NG TUBE PULLED AND REPLACED PER DR. SMITH AFTER RAD. NEW CXR ORDERED.
--- NOTE | 2019-04-20 10:30 | NUR ---
THIRD LITER OF NS STARTED AT 0815 AND INFUSED AT 1010. ORDERED NS WOULD NOT ALLOW ME TO CHART ON IT.
--- NOTE | 2019-04-20 10:40 | NUR ---
Pt unresponsive, intubated. approximately 12 family members present including the pt's , daughters and grandchildren. Offered supportive presence, facilitated positive coping and coordinated with staff and family to ensure safe and supportive visits to pt's room 2 visitors at a time. Pt is anticipated for transfer to [facility] in [place]. family battery filler visited and prayed. This on car supervisor also led the family in prayer and remained with them approx 2 hours providing ongoing support.
--- NOTE | 2019-04-20 10:47 | Diagnostic Imaging Report ---
EXAMINATION: Portable supine AP chest at 1018 hours. INDICATION: Check OG line placement. FINDINGS: Reportedly, in the interval since the exam performed earlier today at 0751 hours, a new OG line has been inserted. The line is coiled on itself in the region of the gastric body. The tip of the line is not visualized but appears to extend towards the gastric antrum. The overall appearance of the chest itself is otherwise stable. IMPRESSION: 1. The tip of the OG line is directed towards the gastric antrum. The tip itself is not visualized, however. 2. If further evaluation of the precise location of the tip of the OG line is desired, then an abdomen exam should be obtained. Dictated by: Dictated on workstation # [id number]
[2019-04-20 10:54] VITALS: BP 112/68
== END 2019-04-20 10:54 | disposition short-term general hospital (02) ==
LOC: EDUNIT# 07:10 → ER 07:11
DX: J96.22 Acute and chronic respiratory failure with hypercapnia (principal); J96.21 Acute and chronic respiratory failure with hypoxia; S22.42XA Multiple fractures of ribs, left side, initial encounter for closed fracture; J93.9 Pneumothorax, unspecified; R91.8 Other nonspecific abnormal finding of lung field; F17.210 Nicotine dependence, cigarettes, uncomplicated; R68.0 Hypothermia, not associated with low environmental temperature; J44.9 Chronic obstructive pulmonary disease, unspecified; F41.9 Anxiety disorder, unspecified; F43.10 Post-traumatic stress disorder, unspecified; Z85.828 Personal history of other malignant neoplasm of skin; Z88.8 Allergy status to other drugs, medicaments and biological substances; Z99.81 Dependence on supplemental oxygen; W19.XXXA Unspecified fall, initial encounter
CPT/HCPCS: 36415; 36600; 51702; 70450; 71045; 71260; 72125; 72128; 72131; 72170; 74177; 80053; 80306; 80320; 80329; 81000; 82140; 82550; 82553; 82805; 83605; 83690; 83735; 83874; 83880; 84132; 84484; 85007; 85027; 85610; 85730; 87040; 87070; 87077; 87088; 87205; 87804; 93005; 93041